=== PATIENT | female | born 1990 | race Caucasian/White ===

== ENCOUNTER → 2017-10-05 11:58 | Outpatient (CLI) | payer BC, SELFPAY ==
[2017-10-05 14:55] LABS: Hematocrit 33.5 % (37-47); Hemoglobin 10.4 g/dl (12.0-15.0); Mean Corpuscular Hgb 23.4 pg (27.0-32.0); Mean Corpuscular Volume 75.3 fL (81-99); Mean Platelet Vol. 10.9 fl (6.2-12.0); Platelet Count 204 K/mm3 (150-450); RBC Distribution Width CV 15.8 % (11.6-14.6); RBC Distribution Width SD 42.9 fl (35.1-43.9); Red Blood Count 4.45 M/mm3 (4.2-5.4)
[2017-10-05 14:57] LABS: Scan Indicated on CBC? Y/N NO
[2017-10-05 15:12] LABS: Free T3 2.5 pg/mL (2.18-3.98); T4 Free Direct 0.98 ng/dL (0.76-1.46); Thyroid Stim Hormone (TSH) 1.16 uIU/mL (0.358-3.74)
[2017-10-13 13:04] LABS: HPV Reflexed? NOT INDICATED
== END ==
PROVIDERS: Visit Provider Obstetrics & Gynecology
DX: Z12.4 Encounter for screening for malignant neoplasm of cervix (principal); N92.5 Other specified irregular menstruation
CPT/HCPCS: 36415; 84439; 84443; 84481; 85027; 88175; G0145

== ENCOUNTER → 2017-11-16 15:29 | Outpatient (CLI) | payer BC, SELFPAY ==
[2017-11-16 16:38] LABS: Progesterone Level 8.27 ng/mL (See Comment)
== END ==
PROVIDERS: Visit Provider Obstetrics & Gynecology
DX: N92.0 Excessive and frequent menstruation with regular cycle (principal)
CPT/HCPCS: 84144

== ENCOUNTER 2017-12-23 05:31 | Day surgery (SDC) | payer BC, SELFPAY ==
[2017-12-20 11:05] LABS: Hematocrit 36.8 % (37-47); Hemoglobin 11.7 g/dl (12.0-15.0); Mean Corp Hgb Conc 31.8 g/gl (32-36); Mean Corpuscular Hgb 25.7 pg (27.0-32.0); Mean Corpuscular Volume 80.7 fL (81-99); Mean Platelet Vol. 9.9 fl (6.2-12.0); Platelet Count 194 K/mm3 (150-450); RBC Distribution Width CV 17.1 % (11.6-14.6); RBC Distribution Width SD 50.3 fl (35.1-43.9); Red Blood Count 4.56 M/mm3 (4.2-5.4); White Blood Count 5.6 K/mm3 (4.4-11.0)
[2017-12-20 11:19] LABS: Scan Indicated on CBC? Y/N NO
[2017-12-20 11:23] LABS: Ferritin 17 ng/mL (8-252)
[2017-12-20 11:27] LABS: International Normalized Ratio 1.1; Prothrombin Time (Protime)PT. 13.8 SECONDS (11.7-14.9)
[2017-12-23 05:50] VITALS: BP 119/75; PULSE 77; RESP 16; TEMP 37.8; O2SAT 100; BMI 26.9
[2017-12-23 06:08] LABS: Internal QC Validated? YES +Cl - CLEAR BKGD; Pregnancy, Urine Negative Negative
--- NOTE | 2017-12-23 07:15 | EMB_PTH ---
PATIENT: CORA CORREA LOC: [facility] – [place] U#:[id number] AGE/SX: 27/F ROOM: RE12/23/[address]: Dr. Shaina Lopez MD : 1990 BED: DIS: 12/23/2017 SPEC #: [id number] RECD: 12/23/17 10:39 STATUS: NITESH REQ #: [id number] GRETTA: 12/23/17 07:[address]: Shaina Lackey DEPT: SURGICAL PATHOLOGY RECD BY: Robert Hanna ENTERED: 12/23/17 11:32 SP TYPE: ENDOM BX/C OT DR: Dr. Precious Valdez MD Tissues: A - Endometrium, NOS B - OVARIAN CYST Procedures: Surgery Specimen Level IV HEADER OPERATION: Laparoscopic ovarian cystectomy PRE-OP DIAGNOSIS: Excessive and frequent menstruation, ovarian cyst and left-sided pain TISSUE SUBMITTED: A - Endometrial curettings, B - Ovarian cyst MICROSCOPIC DIAGNOSIS A. Endometrial curettings: Secretory endometrium. B. Ovarian cyst, cystectomy: Simple serous cystadenoma. SHADI:joshua 12/24/17 MICROSCOPIC DESCRIPTION Slides are reviewed. GROSS DESCRIPTION A - Received in fixative is one container labeled with the patient's name and designated endometrial curettings. The specimen consists of multiple pieces of pink hemorrhagic soft tissue that in aggregate measure 5 x 3 x 0.3 cm. The entire specimen is submitted in two cassettes. B - Received in fixative is one container labeled with the patient's name and designated ovarian cyst. The specimen consists of a cyst weighing 5.6 gm and measuring 4 x 2.5 x 1.5 cm. Sections reveal a collapsed cyst without any papillation measuring 3.5 cm in greatest dimension. Director Of Social Work sections are submitted in three cassettes. / SHADI:joshua 12/23/17 TC:1 CPT: 03056 x2
[2017-12-23] MEDS: Methylene Blue 1% 100 MG/10 ML VIAL (09:20)
[2017-12-23] MEDS: Bupivacaine Mpf 0.5% 30 ML VIAL (09:40)
--- NOTE | 2017-12-23 09:42 | PCM.OPRPT ---
Report of Operation Date of Procedure: 12/23/17 Pre-Operative Diagnosis: Left ovarian cyst, excessive and frequent menstruation with regular cycle, endometrial polyp Post-Operative Diagnosis: Left ovarian cyst, excessive and frequent menstruation with regular cycle, endometrial polyp Surgery/Procedure Performed:: Hysteroscopy, dilation and curettage, resectoscopic polypectomy, laparoscopic left ovarian cystectomy, chromotubation Description of Surgical Findings:: 1. endometrial polyps and submucus fibroid 2. Left ovarian cyst 3. Intra-abdominal adhesions schedule hanger: Yolanda Pérez schedule hanger: Lela Saldana Type of Anesthesia:: General Anesthesiologist: David Jara Specimen's removed: 1. endometrial curettings and polyp. 2. left ovarian cyst Drains: moncada - clear urine Estimated Blood Loss (mL): 100 ml Fluids Replaced: 1100 ml Description of Procedure: Indications: Patient is a 27-year-old para 1 with a history of menorrhagia with anemia found to have suspected endometrial polyp on ultrasound with a 7 cm left adnexal cyst simple morphology. She was counseled regarding management options and opted to proceed with hysteroscopy, dilation curettage, polypectomy and laparoscopic left ovarian cystectomy. Risks, benefits, indications and alternatives of procedures were reviewed. Informed consent was obtained. Procedure: The patient was taken to the operating room and signed and was performed. She is placed in dorsal supine position and induced under general anesthesia and intubated. She is then placed into dorsal lithotomy and examination under anesthesia was performed. Her arms were tucked at her sides. The perineum and abdomen were prepped and draped in sterile fashion. She is then repositioned to high lithotomy and a speculum placed into the vagina the cervix grasped the anterior cervical lip using a single-tooth tenaculum. The uterus sounded to 3.5 inches. The cervix was subsequently dilated and hysteroscopy performed demonstrating anterior loss of mucosal fibroid and an endometrial polyp, normal tubal ostia bilaterally. Sharp curettage and attempted blind polypectomy was performed with partial retrieval of the polyp. At this time I decided to proceed with resectoscopic hysteroscopy to complete the polypectomy. Fluid management systems were changed from normal saline to 1.5% glycine. Resectoscopic hysteroscopy was performed with polypectomy and resection of the endometrial portion of a type I submucosal fibroid. A total of 330 cc of glycine was used. This portion procedure was completed and the resectoscope removed. A uterine manipulator was placed and the patient was placed into low lithotomy attention turned to the abdomen. An inferior umbilical incision was made using scalpel. Veress needle was placed with successful hanging drop test and no aspirate from the abdomen. The abdomen was insufflated to 15 mmHg. The Veress needle was removed and a 5 mm trocar was placed under laparoscopic guidance confirming entry into the abdominal cavity. There were 2 omental adhesions to the anterior abdominal wall obscuring view of the pelvis. A second 5 mm incision and port were placed proximal 2.5cm medial and superior to the left anterior superior iliac spine under transillumination. Using the laparoscopic stone the adhesions were sharply dissected from the anterior abdominal wall; monopolar energy was used for the second portion of the adhesions. There was good hemostasis and visualization of the pelvis was obtained. Patient was placed into Trendelenburg. The uterus was normal-appearing with a right ovarian cyst present likely corpus luteum as well as significant enlargement of the left ovary consistent with a prior ultrasound findings. On inspection of the anatomy it was unclear if this was a left paratubal cyst versus an ovarian cyst as the cyst appeared to be connected to both the tube and the normal ovary. At this time a third and fourth incision and 5 mm ports were placed one suprapubically and the other in the right lower quadrant following transillumination. Using the monopolar stone the left axial cyst was opened and cyst was decompressed with suctioning. Cyst fluid was clear. With decompression of the cyst it initially appeared to be an extension of the tube. Careful sharp and blunt dissection was performed to open up the mesosalpinx sharply, ambulation of the left tube was necessary to complete the procedure appropriately. With continued dissection it became evident that the cyst was separate from the 2 and extreme care was taken to avoid the tubal ostia. The Enseal device was used to coagulate and cut the mesosalpinx below the level of the tube containing the cyst. This excision was continued along the region of normal left ovary and the rest of the cyst in the Enseal. There was no clear plane of cyst origin from the ovary. There was good hemostasis along the ovary and tube. Is concerned given the tubal manipulation and the use of energy devices for the patency of the tube. At this time I proceeded with chromotubation. Patient was taken out of Trendelenburg and placed into high lithotomy. Methylene blue was introduced through a HUMI uterine manipulator and bilateral tubal patency was demonstrated with reflux of the diluted methylene blue. Attention was then turned to the abdomen. The patient was placed into low lithotomy. The abdomen was suction irrigated. The suprapubic incision was extended to approximately 2 cm and the cyst was retrieved under laparoscopic guidance. The abdomen was decompressed and trochars were removed. The suprapubic fascia was closed using 0 Vicryl. The skin at the port sites were closed using 4-0 Monocryl. Steri-Strips and OpSite were placed over the incisional wounds. A total of 10 cc of half percent Sensorcaine was administered locally. Attention was then again turned to the perineum and the vagina was irrigated to remove excess methylene blue that had spilled during the procedure. The tenaculum site was hemostatic. The patient was awakened, extubated, transferred to the recovery room without complication. Sponge counts were correct x2. She tolerated the procedure well. - Complications None - Admit VTE Documentation VTE Present on Admission: No VTE Mechan Device Prophylaxis: SCD's VTE Pharm Prophylaxis ordered?: No
[2017-12-23 10:03] VITALS: BP 112/68; BP 119/75; PULSE 56; RESP 16; TEMP 36.7; O2SAT 100
--- NOTE | 2017-12-23 10:05 | OP.PCM_ITS ---
Report of Operation Date of Procedure: 12/23/17 Pre-Operative Diagnosis: Left ovarian cyst, excessive and frequent menstruation with regular cycle, endometrial polyp Post-Operative Diagnosis: Left ovarian cyst, excessive and frequent menstruation with regular cycle, endometrial polyp Surgery/Procedure Performed:: Hysteroscopy, dilation and curettage, resectoscopic polypectomy, laparoscopic left ovarian cystectomy, chromotubation Description of Surgical Findings:: 1. endometrial polyps and submucus fibroid 2. Left ovarian cyst 3. Intra-abdominal adhesions primary mill roller: Yolanda Pérez primary mill roller: Lela Saldana Type of Anesthesia:: General Anesthesiologist: David Jara Specimen's removed: 1. endometrial curettings and polyp. 2. left ovarian cyst Drains: moncada - clear urine Estimated Blood Loss (mL): 100 ml Fluids Replaced: 1100 ml Description of Procedure: Indications: Patient is a 27-year-old para 1 with a history of menorrhagia with anemia found to have suspected endometrial polyp on ultrasound with a 7 cm left adnexal cyst simple morphology. She was counseled regarding management options and opted to proceed with hysteroscopy, dilation curettage, polypectomy and laparoscopic left ovarian cystectomy. Risks, benefits, indications and alternatives of procedures were reviewed. Informed consent was obtained. Procedure: The patient was taken to the operating room and signed and was p erformed. She is placed in dorsal supine position and induced under general anesthesia and intubated. She is then placed into dorsal lithotomy and examination under anesthesia was performed. Her arms were tucked at her sides. The perineum and abdomen were prepped and draped in sterile fashion. She is then repositioned to high lithotomy and a speculum placed into the vagina the cervix grasped the anterior cervical lip using a single-tooth tenaculum. The uterus sounded to 3.5 inches. The cervix was subsequently dilated and hysteroscopy performed demonstrating anterior loss of mucosal fibroid and an endometrial polyp, normal tubal ostia bilaterally. Sharp curettage and attempted blind polypectomy was performed with partial retrieval of the polyp. At this time I decided to proceed with resectoscopic hysteroscopy to complete the polypectomy. Fluid management systems were changed from normal saline to 1.5% glycine. Resectoscopic hysteroscopy was performed with polypectomy and resection of the endometrial portion of a type I submucosal fibroid. A total of 330 cc of glycine was used. This portion procedure was completed and the resectoscope removed. A uterine manipulator was placed and the patient was placed into low lithotomy attention turned to the abdomen. An inferior umbilical incision was made using scalpel. Veress needle was placed with successful hanging drop test and no aspirate from the abdomen. The abdomen was insufflated to 15 mmHg. The Veress needle was removed and a 5 mm trocar was placed under laparoscopic guidance confirming entry into the abdominal cavity. There were 2 omental adhesions to the anterior abdominal wall obscuring view of the pelvis. A second 5 mm incision and port were placed proximal 2.5cm medial and superior to the left anterior superior iliac spine under transillumination. Using the laparoscopic stone the adhesions were sharply dissected from the anterior abdominal wall; monopolar energy was used for the second portion of the adhesions. There was good hemostasis and visualization of the pelvis was obtained. Patient was placed into Trendelenburg. The uterus was normal- appearing with a right ovarian cyst present likely corpus luteum as well as significant enlargement of the left ovary consistent with a prior ultrasound findings. On inspection of the anatomy it was unclear if this was a left paratubal cyst versus an ovarian cyst as the cyst appeared to be connected to both the tube and the normal ovary. At this time a third and fourth incision and 5 mm ports were placed one suprapubically and the other in the right lower quadrant following transillumination. Using the monopolar stone the left axial cyst was opened and cyst was decompressed with suctioning. Cyst fluid was clear. With decompression of the cyst it initially appeared to be an extension of the tube. Careful sharp and blunt dissection was performed to open up the mesosalpinx sharply, ambulation of the left tube was necessary to complete the procedure appropriately. With continued dissection it became evident that the cyst was separate from the 2 and extreme care was taken to avoid the tubal ostia. The Enseal device was used to coagulate and cut the mesosalpinx below the level of the tube containing the cyst. This excision was continued along the region of normal left ovary and the rest of the cyst in the Enseal. There was no clear plane of cyst origin from the ovary. There was good hemostasis along the ovary and tube. Is concerned given the tubal manipulation and the use of energy devices for the patency of the tube. At this time I proceeded with chromotubation. Patient was taken out of Trendelenburg and placed into high lithotomy. Methylene blue was introduced through a HUMI uterine manipulator and bilateral tubal patency was demonstrated with reflux of the diluted methylene blue. Attention was then turned to the abdomen. The patient was placed into low lithotomy. The abdomen was suction irrigated. The suprapubic incision was extended to approximately 2 cm and the cyst was retrieved under laparoscopic guidance. The abdomen was decompressed and trochars were removed. The suprapubic fascia was closed using 0 Vicryl. The skin at the port sites were closed using 4-0 Monocryl. Steri-Strips and OpSite were placed over the incisional wounds. A total of 10 cc of half percent Sensorcaine was adm inistered locally. Attention was then again turned to the perineum and the vagina was irrigated to remove excess methylene blue that had spilled during the procedure. The tenaculum site was hemostatic. The patient was awakened, extubated, transferred to the recovery room without complication. Sponge counts were correct x2. She tolerated the procedure well. - Complications None - Admit VTE Documentation VTE Present on Admission: No VTE Mechan Device Prophylaxis: SCD's VTE Pharm Prophylaxis ordered?: No
[2017-12-23 10:18] VITALS: BP 102/63; BP 119/75; PULSE 61; RESP 16; O2SAT 100
[2017-12-23 10:30] VITALS: BP 105/58; BP 119/75; PULSE 67; RESP 16; O2SAT 98
[2017-12-23 10:41] VITALS: BP 108/59; BP 119/75; PULSE 62; RESP 16; TEMP 36.3; O2SAT 100
--- NOTE | 2017-12-23 12:15 | DCINST_ITS ---
- Discharge Diagnoses Current Active Problems: Laparoscopic left ovarian cyst removal Hysteroscopy, dilation and curettage with polyp removal from uterus Chromotubation - dye placed through the tubes to verify they are open You will use the following diet at home:: No restrictions Your food should be the consistency of: Regular Discharge Activity: Return to Normal Activity, May Shower, - - No tub bath x 1-2 weeks May resume sexual activity in: 4 weeks Lifting Restrictions: 10-20 lb Call your doctor if you observe: Fever of 101 or Higher, Inability to urinate, Inability to have a bowel movement, Using more than one pad per hour, Shortness of breath, Chest pain, Calf discomfort, Uncontrolled pain Suture Line Care: Avoid Pulling/Pushing Remove Dressing in (days):: 1 Cleanse incision/area with: Soap & Water Allergies/Adverse Reactions: Allergies No Known Allergies Allergy (Verified 12/16/17 09:25) Medications to take at Discharge Ferrous Sulfate [Iron] 325 mg PO DAILY 12/16/17 Progesterone,Micronized [Prometrium] 200 mg PO DAILY 12/16/17 Docusate Sodium [Colace] 100 mg PO BID PRN #60 capsule 12/23/17 Ibuprofen 600 mg PO TID PRN #30 tablet 12/23/17 Oxycodone [Oxyir] 5 mg PO Q6H PRN PRN 3 Days #12 tablet 12/23/17 The following prescriptions were given: Oxycodone [Oxyir] 5 mg PO Q6H PRN PRN 3 Days #12 tablet PRN Reason: Severe Pain (6-12/08) Docusate Sodium [Colace] 100 mg PO BID PRN #60 capsule PRN Reason: Constipation Ibuprofen 600 mg PO TID PRN #30 tablet PRN Reason: Pain Primary Care Physician: Precious Valdez MD [Primary Care Provider] - Test Results: Test results from this visit will be discussed in further detail at your follow- up appointment, if applicable. Please Follow Up With: Shaina Segundo MD When: 2 weeks
[2017-12-23 13:05] VITALS: BP 102/53; BP 119/75; PULSE 71; RESP 16; TEMP 36.9; O2SAT 100
== END 2017-12-23 13:17 | disposition home or self-care (01) ==
LOC: SDC 05:31 → AC 05:32
PROVIDERS: Family Provider Family Medicine; PCP Family Medicine; Referring Provider Obstetrics & Gynecology; Visit Provider Obstetrics & Gynecology
PROC: (CPT 58340; principal; 2017-12-23 07:00)
PROC: 0UJD8ZZ Inspection of Uterus and Cervix, Via Natural or Artificial Opening Endoscopic (ICD-10-PCS; CPT 58555; 2017-12-23 07:00)
DX: D27.1 Benign neoplasm of left ovary (principal); D25.0 Submucous leiomyoma of uterus; N92.0 Excessive and frequent menstruation with regular cycle; D64.9 Anemia, unspecified
CPT/HCPCS: 00840; 58340; 58350; 58558; 58662; 36415; 81025; 82728; 85027; 85610; 85730; 86850; 86900; 88305; J7120; C1760; J2405

== ENCOUNTER → 2018-02-16 10:25 | Outpatient (CLI) | payer BC, SELFPAY ==
[2018-02-16 16:14] LABS: Progesterone Level 1.34 ng/mL (See Comment)
--- OUTSIDE RECORDS SUMMARY | 2018-05-20 14:13 | XMS RPT_ITS ---
:1990 Author Organization OHIP Care Team Providers Name Role Phone Shaina Segundo Attending Unavailable Shaina Segundo Attending Unavailable Shaina Segundo Attending Unavailable Zechariah-John, Summer Attending Unavailable Sanya, Summer Referring Unavailable Precious Valdez Primary Care Unavailable PROBLEMS PROBLEMS DATE TYPE CONDITION / CODE ATTENDING STATUS SOURCE 02/16/2018 Unknown N92.0 - Excessive Apple-John, Active [place] and frequent [facility] menstruation with Hospital regular cycle / Repository N92.0(ICD-10) 02/16/2018 Unknown N83.292 - Other Apple-John, Active [place] ovarian cyst, left [facility] side / Hospital N83.292(ICD-10) Repository 12/23/2017 Unknown Z98.890 - Other Apple-John, Active Gur[place]reet specified [facility] postprocedural Hospital states / Repository Z98.890(ICD-10) 10/08/2017 Unknown N92.5 - Other Apple-John, Active [place] specified irregular [facility] menstruation / Hospital N92.5(ICD-10) Repository 10/08/2017 Unknown Z12.4 - Encounter Zechariah-John, Active [place] for screening for [facility] malignant neoplasm Hospital of cervix / Repository Z12.4(ICD-10) PROCEDURES PROCEDURES No Procedure Records FoundRESULTS RESULTS PROGESTERONE LEVEL Collected: 02/16/2018 Status: F Source: [place] 10:28 AM [facility] RE[facility] Order Comment: TODAY IS CYCLE DAY 21 TYPE CODE TESTS RESULT OUT OF REFERENCE UNITS RANGE LAB L509.4001 See Comment ng/mL Progesterone Normal 1.34 Result Comment: Progesterone Reference Table: UNITS Female: Follicular 0.15 - 1.40 ng/mL Luteal 3.34 - 25.56 ng/mL Mid-luteal 4.44 - 28.03 ng/mL Postmenopausal 0.0 - 0.73 ng/mL : 1st Trimester 11.22 - 90.00 ng/mL 2nd Trimester 25.55 - 89.40 ng/mL 3rd Trimester 48.40 -422.50 ng/mL Performed By: #### L509.4001 #### [facility] [address] [place], [address] DISCHARGE INSTRUCTION Observed: 12/23/2017 Status: F Source: [place] 12:16 PM [facility] RE[facility]IT[facility] Medical Records Department [address] [place] [address] Instructions for Home/Discharge Instructions 12/23/17 1213 MR#: [id number] Acct: [id number] Name: CORA CORREA Rep #: [id number] : 1990 27 From: Shaina Lopez MD PCP: Precious Valdez MD Status: REG [facility] - Discharge Diagnoses Current Active Problems: Laparoscopic left ovarian cyst removal Hysteroscopy, dilation and curettage with polyp removal from uterus Chromotubation - dye placed through the tubes to verify they are open You will use the following diet at home:: No restrictions Your food should be the consistency of: Regular Discharge Activity: Return to Normal Activity, May Shower, - - No tub bath x 1-2 weeks May resume sexual activity in: 4 weeks Lifting Restrictions: 10-20 lb Call your doctor if you observe: Fever of 101 or Higher, Inability to urinate, Inability to have a bowel movement, Using more than one pad per hour, Shortness of breath, Chest pain, Calf discomfort, Uncontrolled pain Suture Line Care: Avoid Pulling/Pushing Remove Dressing in (days):: 1 Cleanse incision/area with: Soap AND Water Allergies/Adverse Reactions: Allergies No Known Allergies Allergy (Verified 12/16/17 09:25) Medications to take at Discharge Ferrous Sulfate [Iron] 325 mg PO DAILY 12/16/17 Progesterone,Micronized [Prometrium] 200 mg PO DAILY 12/16/17 Docusate Sodium [Colace] 100 mg PO BID PRN #60 capsule 12/23/17 Ibuprofen 600 mg PO TID PRN #30 tablet 12/23/17 Oxycodone [Oxyir] 5 mg PO Q6H PRN PRN 3 Days #12 tablet 12/23/17 The following prescriptions were given: Oxycodone [Oxyir] 5 mg PO Q6H PRN PRN 3 Days #12 tablet PRN Reason: Severe Pain (6-12/08) Docusate Sodium [Colace] 100 mg PO BID PRN #60 capsule PRN Reason: Constipation Ibuprofen 600 mg PO TID PRN #30 tablet PRN Reason: Pain Primary Care Physician: Precious Valdez MD [Primary Care Provider] - Test Results: Test results from this visit will be discussed in further detail at your follow-up appointment, if applicable. Please Follow Up With: Shaina Segundo MD When: 2 weeks 12/23/17 1216 <Electronically signed by Shaina Segundo MD> Date Shaina Segundo MD CC: Precious Valdez MD OPERATIVE REPORT Observed: 12/23/2017 Status: F Source: [place] 10:05 AM [facility] Medical Records Department [address] [place] [address] Operative Report 12/23/17 0942 MR#: [id number] Acct: [id number] Name: CORA CORREA Rep #: [id number] : 1990 27 From: Shaina Lopez MD PCP: Precious Valdez MD Status: REG [facility] Y Location: [place] [address] Report of Operation Date of Procedure: 12/23/17 Pre-Operative Diagnosis: Left ovarian cyst, excessive and frequent menstruation with regular cycle, endometrial polyp Post-Operative Diagnosis: Left ovarian cyst, excessive and frequent menstruation with regular cycle, endometrial polyp Surgery/Procedure Performed:: Hysteroscopy, dilation and curettage, resectoscopic polypectomy, laparoscopic left ovarian cystectomy, chromotubation Description of Surgical Findings:: 1. endometrial polyps and submucus fibroid 2. Left ovarian cyst 3. Intra-abdominal adhesions disaster recovery analyst: Yolanda Pérez disaster recovery analyst: Lela Saldana Type of Anesthesia:: General Anesthesiologist: David Jara Specimen's removed: 1. endometrial curettings and polyp. 2. left ovarian cyst Drains: moncada - clear urine Estimated Blood Loss (mL): 100 ml Fluids Replaced: 1100 ml Description of Procedure: Indications: Patient is a 27-year-old para 1 with a history of menorrhagia with anemia found to have suspected endometrial polyp on ultrasound with a 7 cm left adnexal cyst simple morphology. She was counseled regarding management options and opted to proceed with hysteroscopy, dilation curettage, polypectomy and laparoscopic left ovarian cystectomy. Risks, benefits, indications and alternatives of procedures were reviewed. Informed consent was obtained. Procedure: The patient was taken to the operating room and signed and was performed. She is placed in dorsal supine position and induced under general anesthesia and intubated. She is then placed into dorsal lithotomy and examination under anesthesia was performed. Her arms were tucked at her sides. The perineum and abdomen were prepped and draped in sterile fashion. She is then repositioned to high lithotomy and a speculum placed into the vagina the cervix grasped the anterior cervical lip using a single-tooth tenaculum. The uterus sounded to 3.5 inches. The cervix was subsequently dilated and hysteroscopy performed demonstrating anterior loss of mucosal fibroid and an endometrial polyp, normal tubal ostia bilaterally. Sharp curettage and attempted blind polypectomy was performed with partial retrieval of the polyp. At this time I decided to proceed with resectoscopic hysteroscopy to complete the polypectomy. Fluid management systems were changed from normal saline to 1.5% glycine. Resectoscopic hysteroscopy was performed with polypectomy and resection of the endometrial portion of a type I submucosal fibroid. A total of 330 cc of glycine was used. This portion procedure was completed and the resectoscope removed. A uterine manipulator was placed and the patient was placed into low lithotomy attention turned to the abdomen. An inferior umbilical incision was made using scalpel. Veress needle was placed with successful hanging drop test and no aspirate from the abdomen. The abdomen was insufflated to 15 mmHg. The Veress needle was removed and a 5 mm trocar was placed under laparoscopic guidance confirming entry into the abdominal cavity. There were 2 omental adhesions to the anterior abdominal wall obscuring view of the pelvis. A second 5 mm incision and port were placed proximal 2.5cm medial and superior to the left anterior superior iliac spine under transillumination. Using the laparoscopic stone the adhesions were sharply dissected from the anterior abdominal wall; monopolar energy was used for the second portion of the adhesions. There was good hemostasis and visualization of the pelvis was obtained. Patient was placed into Trendelenburg. The uterus was normal-appearing with a right ovarian cyst present likely corpus luteum as well as significant enlargement of the left ovary consistent with a prior ultrasound findings. On inspection of the anatomy it was unclear if this was a left paratubal cyst versus an ovarian cyst as the cyst appeared to be connected to both the tube and the normal ovary. At this time a third and fourth incision and 5 mm ports were placed one suprapubically and the other in the right lower quadrant following transillumination. Using the monopolar stone the left axial cyst was opened and cyst was decompressed with suctioning. Cyst fluid was clear. With decompression of the cyst it initially appeared to be an extension of the tube. Careful sharp and blunt dissection was performed to open up the mesosalpinx sharply, ambulation of the left tube was necessary to complete the procedure appropriately. With continued dissection it became evident that the cyst was separate from the 2 and extreme care was taken to avoid the tubal ostia. The Enseal device was used to coagulate and cut the mesosalpinx below the level of the tube containing the cyst. This excision was continued along the region of normal left ovary and the rest of the cyst in the Enseal. There was no clear plane of cyst origin from the ovary. There was good hemostasis along the ovary and tube. Is concerned given the tubal manipulation and the use of energy devices for the patency of the tube. At this time I proceeded with chromotubation. Patient was taken out of Trendelenburg and placed into high lithotomy. Methylene blue was introduced through a HUMI uterine manipulator and bilateral tubal patency was demonstrated with reflux of the diluted methylene blue. Attention was then turned to the abdomen. The patient was placed into low lithotomy. The abdomen was suction irrigated. The suprapubic incision was extended to approximately 2 cm and the cyst was retrieved under laparoscopic guidance. The abdomen was decompressed and trochars were removed. The suprapubic fascia was closed using 0 Vicryl. The skin at the port sites were closed using 4-0 Monocryl. Steri-Strips and OpSite were placed over the incisional wounds. A total of 10 cc of half percent Sensorcaine was administered locally. Attention was then again turned to the perineum and the vagina was irrigated to remove excess methylene blue that had spilled during the procedure. The tenaculum site was hemostatic. The patient was awakened, extubated, transferred to the recovery room without complication. Sponge counts were correct x2. She tolerated the procedure well. - Complications None - Admit VTE Documentation VTE Present on Admission: No VTE Mechan Device Prophylaxis: SCD's VTE Pharm Prophylaxis ordered?: No 12/23/17 1005 <Electronically signed by Shaina Segundo MD> Date Shaina Segundo MD CC: Precious Valdez MD; Shaina Segundo MD Signed ENDOMETRIAL BX/CURETTINGS Observed: 12/23/2017 Status: F Source: [place] 7:15 AM [facility] Patient: CORA CORREA : 1990 () Acct Num: [id number] Phys: Sanya HUFF,Summer Unit Num: [id number] Loc: [facility] Specimen: [id number] Received: 12/23/17 - 1039 Spec Type: ENDOM BX/C TISSUES 1 TISSUES: A. Endometrium, NOS B. OVARIAN CYST GROSS DESCRIPTION A - Received in fixative is one container labeled with the patient's name and designated endometrial curettings. The specimen consists of multiple pieces of pink hemorrhagic soft tissue that in aggregate measure 5 x 3 x 0.3 cm. The entire specimen is submitted in two cassettes. B - Received in fixative is one container labeled with the patient's name and designated ovarian cyst. The specimen consists of a cyst weighing 5.6 gm and measuring 4 x 2.5 x 1.5 cm. Sections reveal a collapsed cyst without any papillation measuring 3.5 cm in greatest dimension. Photoresist Printer sections are submitted in three cassettes. / SJ:joshua 12/23/17 TC:1 CPT: 24847 x2 HEADER OPERATION: Laparoscopic ovarian cystectomy PRE-OP DIAGNOSIS: Excessive and frequent menstruation, ovarian cyst and left- sided pain TISSUE SUBMITTED: A - Endometrial curettings, B - Ovarian cyst MICROSCOPIC DESCRIPTION Slides are reviewed. MICROSCOPIC DIAGNOSIS A. Endometrial curettings: Secretory endometrium. B. Ovarian cyst, cystectomy: Simple serous cystadenoma. SJ:joshua 12/24/17 Signed Neftali Adams 12/24/17 <signature on file> Performed By: #### PEMB #### [facility] [address] [place], [place], [id number] ,URINE Collected: 12/23/2017 Status: F Source: [place] 5:43 AM [facility] TYPE CODE TESTS RESULT OUT OF REFERENCE UNITS RANGE LAB L400.8000 Negative Normal HCGUQUAL Negative Result Comment: Very dilute urine specimens, as indicated by a low specific gravity, may not contain sales representative church furniture levels of hCG. If is still suspected, a first morning urine specimen should be collected 48 hours later and tested. Performed By: #### L400.7600 #### [facility] [address] [place], [place], [id number] CBC-COMPLETE BLOOD CNT Collected: 12/20/2017 Status: F Source: [place] NO DIFF 9:48 AM [facility] TYPE CODE TESTS RESULT OUT OF RANGE REFERENCE UNITS LAB L100.1000 4.4-11.0 K/mm3 Normal WBC 5.6 LAB L100.1200 4.2-5.4 M/mm3 Normal RBC 4.56 LAB L100.1300 12.0-15.0 g/dl Low HGB 11.7 LAB L100.1400 37-47 % Low HCT 36.8 LAB L100.1500 81-99 fL Low MCV 80.7 LAB L100.1600 27.0-32.0 pg Low MCH 25.7 LAB L100.1700 32-36 g/gl Low MCHC 31.8 LAB L100.1810 11.6-14.6 % High RDW CV 17.1 LAB L100.1820 35.1-43.9 fl High RDW SD 50.3 LAB L100.1900 150-450 K/mm3 Normal PLT 194 LAB L100.2000 6.2-12.0 fl Normal MPV 9.9 Performed By: #### L100.0500 #### [facility] [address] [place], [place], [address] FERRITIN Collected: 12/20/2017 Status: F Source: [place] 9:48 AM [facility] TYPE CODE TESTS RESULT OUT OF RANGE REFERENCE UNITS LAB L503.6550 8-252 ng/mL Normal FERRITIN 17 Performed By: #### L503.6550 #### [facility] [address] [place], [address] TYPE AND SCREEN Collected: 12/20/2017 Status: F Source: [place] 9:48 AM [facility] Order Comment: Surgery Date: 12/23/17 Hx of Preganancy in last 3 Months No Ever experience any problems with transfusion(s)? N Hx of Transfusion in last 3 Months N Reason for Type AND Screen/Red Cells: SURGERY SURGICAL PROCEDURE: 96372 76507 TYPE CODE TESTS RESULT OUT OF RANGE REFERENCE UNITS LAB B10.0800 O Normal BLOOD TYPE GEL POSITIVE LAB B100.4000 Normal Antibody NEGATIVE Screen Performed By: #### B101.7475 #### [facility] [address] [place], [address] PROTHROMBIN TIME W/INR Collected: 12/20/2017 Status: F Source: [place] 9:48 AM [facility] TYPE CODE TESTS RESULT OUT OF RANGE REFERENCE UNITS LAB L300.4150 11.7-14.9 SECONDS Normal PROTIME 13.8 LAB L300.4200 Normal INR 1.1 Performed By: #### L300.3900, L300.4310 #### [facility] [address] [place], [address] PARTIAL THROMBOPLAST Collected: 12/20/2017 Status: F Source: [place] TIME 9:48 AM [facility] TYPE CODE TESTS RESULT OUT OF RANGE REFERENCE UNITS LAB L300.4310 24.1-36.2 Seconds Normal PTT 32.0 Performed By: #### L300.3900, L300.4310 #### [facility] [address] [place], [address] PROGESTERONE LEVEL Collected: 11/16/2017 Status: F Source: [place] 3:10 PM [facility] Order Comment: TODAY IS CYCLE DAY 22 TYPE CODE TESTS RESULT OUT OF REFERENCE UNITS RANGE LAB L509.4001 See Comment ng/mL Progesterone Normal 8.27 Result Comment: Progesterone Reference Table: UNITS Female: Follicular 0.15 - 1.40 ng/mL Luteal 3.34 - 25.56 ng/mL Mid-luteal 4.44 - 28.03 ng/mL Postmenopausal 0.0 - 0.73 ng/mL : 1st Trimester 11.22 - 90.00 ng/mL 2nd Trimester 25.55 - 89.40 ng/mL 3rd Trimester 48.40 -422.50 ng/mL Performed By: #### L509.4001 #### [facility] [address] [place], [address] CBC-COMPLETE BLOOD CNT Collected: 10/05/2017 Status: F Source: [place] NO DIFF 12:02 PM [facility] TYPE CODE TESTS RESULT OUT OF RANGE REFERENCE UNITS LAB L100.1000 4.4-11.0 K/mm3 Normal WBC 5.0 LAB L100.1200 4.2-5.4 M/mm3 Normal RBC 4.45 LAB L100.1300 12.0-15.0 g/dl Low HGB 10.4 LAB L100.1400 37-47 % Low HCT 33.5 LAB L100.1500 81-99 fL Low MCV 75.3 LAB L100.1600 27.0-32.0 pg Low MCH 23.4 LAB L100.1700 32-36 g/gl Low MCHC 31.0 LAB L100.1810 11.6-14.6 % High RDW CV 15.8 LAB L100.1820 35.1-43.9 fl Normal RDW SD 42.9 LAB L100.1900 150-450 K/mm3 Normal PLT 204 LAB L100.2000 6.2-12.0 fl Normal MPV 10.9 Performed By: #### L100.0500 #### [facility] [address] [place], [address] FREE T3 Collected: 10/05/2017 Status: F Source: [place] 12:02 PM [facility] TYPE CODE TESTS RESULT OUT OF RANGE REFERENCE UNITS LAB L501.77631 2.18-3.98 pg/mL Normal FREE T3 2.5 Performed By: #### L501.73195, L501.9520, L506.0400 #### [facility] [address] [place], [address] THYROID STIM HORMONE Collected: 10/05/2017 Status: F Source: [place] (TSH) 12:02 PM [facility] TYPE CODE TESTS RESULT OUT OF RANGE REFERENCE UNITS LAB L501.9520 0.358-3.74 uIU/mL Normal TSH 1.16 Performed By: #### L501.64974, L501.9520, L506.0400 #### [facility] [address] [place], [address] T4 FREE DIRECT Collected: 10/05/2017 Status: F Source: [place] 12:02 PM [facility] TYPE CODE TESTS RESULT OUT OF RANGE REFERENCE UNITS LAB L506.0400 0.76-1.46 ng/dL Normal T4 FREE 0.98 DIRECT Performed By: #### L501.08239, L501.9520, L506.0400 #### [facility] [address] [place], [address] PAP I-G W/RFX Collected: 10/05/2017 Status: F Source: [place] HRHPV-APTIMA 11:00 AM [facility] Order Comment: CYTOLOGY INFORMATION: - CLINICAL INFORMATION: - DATE LMP/MENOPAUSE: 09/22/17 LMP - COLLECTION VIAL: Thin Prep Vial - HEALTH THERAPIST SOURCE: CERVICAL/ENDOCERVICAL - COLLECTION TECHNIQUE: BRUSH/SPATULA Specimen Comment: [id number] Specimen Comment: No. of containers..01 ThinPrep Vial TYPE CODE TESTS RESULT OUT OF RANGE REFERENCE UNITS LAB L7400.0800 . Normal DIAGN Comment Result Comment: NEGATIVE FOR INTRAEPITHELIAL LESION AND MALIGNANCY. LAB L7400.0900 . Normal ADEQ Comment Result Comment: Satisfactory for evaluation. LAB L7400.1400 . Normal PERFORM Comment Result Comment: Mira Treadwell, Patient Services Clerk (ASCP) LAB L7400.2575 . Normal TEST METHOD Comment Result Comment: This liquid based ThinPrep(R) pap test was screened with the use of an image guided system. LAB L7400.2600 . Normal . COMM LAB L7400.2700 . Normal PAPSMR Comment Result Comment: The Pap smear is a screening test designed to aid in the detection of premalignant and malignant conditions of the uterine cervix. It is not a diagnostic procedure and should not be used as the sole means of detecting cervical cancer. Both false-positive and false-negative reports do occur. LAB L7400.2800 . Normal HPV RFLX Comment Result Comment: The HPV DNA reflex criteria were not met with this specimen result therefore, no HPV testing was performed. Performed at: - [facility] [id number] Fashion Coordinator: Tawanna Newsome MD, Phone: [phone] Performed By: #### L7400.0353 #### [facility] (refer to report for specific site) refer to report for address and phone number ALLERGIES ALLERGIES DATE TYPE / CODE NAME / CODE REACTION SEVERITY SOURCE 12/16/2017 Drug No Known Unknown [facility] Allergy/4160 Allergies/F00 Hospital [address](SNOMED [id number](RXNOR Repository CT) M) ENCOUNTERS ENCOUNTERS ADMIT/DISCHARGE ACCOUNT ADMITTING ENCOUNTER LOCATION SOURCE NUMBER CLASS 02/16/2018 [id number] Ambulatory [place] 7 [facility] ing:WOBLAB Repository 12/23/2017/ [id number] [facility] ing:SDCRoom: Repository AC01 11/16/2017 [id number] [facility] ing:LABSPEC Repository 10/05/2017 [id number] [facility] 7 [facility] ing:WOBLAB Repository PAYERS PAYERS ENCOUNTER GUARANTOR PAYER SUBSCRIBER SOURCE 02/16/2018 [facility] NIKA S [place] [id number] Insurance:ANTHEMPolic SCHCKERDOB: [facility] y Number: [id number] [id number] Repository [address]Zva: [phone]) voh Date:4327-05-89UO [phone] () [id number] [place] [address]QO: 02/16/2018 Secondary NOT GIVENUNK [place] Insurance:SELF PAY [facility] Number: Effective Repository Date:2018-02-16 12/23/2017 [facility] Primary NIKA S [place] [id number] [facility] y Number: [id number], [place] [id number] Repository [address]Sdr: [phone]) jorge alberto Date:[id number] [phone] () [address], [place] [address]XJ: 12/23/2017 Secondary NOT GIVENUNK [place] Insurance:SELF PAY [facility] Number: Effective Repository Date:2017-12-07 11/16/[address] [facility] S [place] [id number] Insurance:ANTHEMPolic SCHMUCKERDOB: [facility] y Number: [id number], [place] [id number] Repository [address]Bvi: [phone]) jorge alberto Date:0804-00-47MA [phone] () [address]JS, [place] [address]OD: 11/16/2017 Secondary NOT GIVENUNK [place] Insurance:SELF PAY [facility] Number: Effective Repository Date:2017-11-16 10/05/[address] [facility] S [place] [id number] Insurance:ANTHEMPolic SCHMUCKERDOB: [facility] y Number: [id number], [place] [id number] Repository [address]Ghh: [phone]) jorge alberto Date:9070-45-55SI [phone] () [address]ZTX[place], [place] [address]XS: 10/05/2017 Secondary NOT GIVENUNK Gurpreet Insurance:SELF PAY [facility] Number: Effective Repository Date:2017-10-05
== END ==
PROVIDERS: Visit Provider Obstetrics & Gynecology
DX: N92.0 Excessive and frequent menstruation with regular cycle (principal); N83.292 Other ovarian cyst, left side
CPT/HCPCS: 36415; 84144

== ENCOUNTER → 2018-05-05 08:41 | Outpatient (CLI) | payer BC, SELFPAY ==
[2018-05-05 11:22] LABS: Insulin 12.2 mU/L (2.6-37.6); Vitamin D,25 Hydroxy 20.2 ng/mL (29.95-100.01)
[2018-05-05 11:28] LABS: Estradiol 38.4 pg/mL; Follicle Stimulating Hormone 5.3 mIU/mL; Free T3 3.1 pg/mL (2.18-3.98); Glucose 91 mg/dL (74-106); Prolactin 6.5 ng/mL; T4 Free Direct 1.01 ng/dL (0.76-1.46); Thyroid Stim Hormone (TSH) 1.73 uIU/mL (0.358-3.74)
[2018-05-06 12:40] LABS: DHEA Sulfate 578.2 ug/dL (84.8-378.0)
[2018-05-09 10:59] LABS: 17-Hydroxyprogesterone 29 ng/dL (.)
== END ==
PROVIDERS: Visit Provider Obstetrics & Gynecology
DX: N92.0 Excessive and frequent menstruation with regular cycle (principal)
CPT/HCPCS: 36415; 82306; 82533; 82627; 82670; 82947; 83001; 83498; 83525; 84146; 84403; 84439; 84443; 84481; 82626

== ENCOUNTER → 2018-06-20 09:36 | Outpatient (CLI) | payer BC, SELFPAY ==
[2018-06-20 11:11] LABS: Progesterone Level 11.18 ng/mL (See Comment)
== END ==
PROVIDERS: Visit Provider Obstetrics & Gynecology
DX: N97.0 Female infertility associated with anovulation (principal)
CPT/HCPCS: 36415; 84144

== ENCOUNTER → 2018-08-08 08:42 | Outpatient (CLI) | payer BC, SELFPAY ==
[2018-08-08 10:52] LABS: hCG Titer Quant., Serum 11 mIU/mL (1-3)
== END ==
PROVIDERS: Visit Provider Obstetrics & Gynecology
DX: N91.2 Amenorrhea, unspecified (principal)
CPT/HCPCS: 36415; 84702; A4216

== ENCOUNTER → 2018-08-10 09:07 | Outpatient (CLI) | payer BC, SELFPAY ==
[2018-08-10 11:12] LABS: hCG Titer Quant., Serum 3 mIU/mL (1-3)
== END ==
PROVIDERS: Visit Provider Obstetrics & Gynecology
DX: N91.2 Amenorrhea, unspecified (principal)
CPT/HCPCS: 36415; 84702

== ENCOUNTER → 2018-09-22 09:26 | Outpatient (CLI) | payer BC, SELFPAY ==
[2018-09-22 10:51] LABS: Progesterone Level 24.03 ng/mL (See Comment); Vitamin D,25 Hydroxy 76.3 ng/mL (29.95-100.01)
== END ==
PROVIDERS: Visit Provider Obstetrics & Gynecology
DX: N97.0 Female infertility associated with anovulation (principal); E55.9 Vitamin D deficiency, unspecified
CPT/HCPCS: 36415; 82306; 84144

== ENCOUNTER → 2019-01-04 16:52 | Outpatient (CLI) | payer BC, SELFPAY ==
[2019-01-04 16:46] VITALS: BMI 26.9
[2019-01-04 17:17] LABS: Absolute Lymphocyte Count 2.32 X10^3/uL (0.83-4.51); Absolute Neutrophil Count 5.8 X10^3/uL (2.0-7.7); Basophil# 0.04 X10^3/uL; Basophil% 0.4 % (0-1); Eosinophil# 0.15 X10^3/uL; Eosinophils% 1.7 % (0-5); Hematocrit 36.1 % (37-47); Lymphocyte # 2.32 X10^3/ul (4.0); Lymphocyte % 25.9 % (19-41); Mean Corp Hgb Conc 33.2 g/dL (32-36); Mean Corpuscular Hgb 27.8 pg (27.0-32.0); Mean Corpuscular Volume 83.8 fL (81-99); Mean Platelet Vol. 9.8 fl (6.2-12.0); Monocyte# 0.64 X10^3/uL; Monocyte% 7.1 % (0-10); NRBC Flagged by Analyzer 0 % (0-5); Neutrophil # 5.77 X10^3/uL (2.7-7.7); Neutrophil % 64.5 % (47-70); Platelet Count 209 K/mm3 (150-450); RBC Distribution Width CV 13.5 % (11.6-14.6); RBC Distribution Width SD 41.9 fl (35.1-43.9); Red Blood Count 4.31 M/mm3 (4.2-5.4)
[2019-01-04 21:17] LABS: Chlamydia Trachomatis by PCR Negative (Negative); Neisserai gonorrhoeae by PCR Negative (Negative); Probe Check PASS; Sample Adequacy Control PASS; Specimen Processing Control PASS
[2019-01-05 02:21] LABS: Rapid Plasmin Reagin (RPR) NONREACTIVE (NONREACTIVE)
[2019-01-05 11:06] LABS: HIV - WCH Non-Reactive (Nonreactive); Hepatitis B Surface Antigen Non-Reactive (Nonreactive); Rubella IgG 70.4 IU/mL
== END ==
PROVIDERS: Family Provider Family Medicine; PCP Family Medicine; Referring Provider Obstetrics & Gynecology; Visit Provider Obstetrics & Gynecology
DX: Z34.80 Encounter for supervision of other normal pregnancy, unspecified trimester (principal)
CPT/HCPCS: 36415; 85025; 86592; 86703; 86762; 86850; 86900; 86901; 87340; 87491; 87591

== ENCOUNTER → 2019-05-26 15:05 | Outpatient (CLI) | payer BC, SELFPAY ==
[2019-05-26 14:14] VITALS: BMI 26.9
[2019-05-26 15:38] LABS: Absolute Lymphocyte Count 1.66 X10^3/uL (0.83-4.51); Absolute Neutrophil Count 6.9 X10^3/uL (2.0-7.7); Basophil# 0.02 X10^3/uL; Basophil% 0.2 % (0-1); Eosinophil# 0.14 X10^3/uL; Eosinophils% 1.5 % (0-5); Hematocrit 31.4 % (37-47); Hemoglobin 10.4 g/dL (12.0-15.0); Lymphocyte # 1.66 X10^3/ul (4.0); Lymphocyte % 17.8 % (19-41); Mean Corp Hgb Conc 33.1 g/dL (32-36); Mean Corpuscular Hgb 29.1 pg (27.0-32.0); Mean Platelet Vol. 9.9 fl (6.2-12.0); Monocyte# 0.58 X10^3/uL; Monocyte% 6.2 % (0-10); NRBC Flagged by Analyzer 0 % (0-5); Neutrophil # 6.85 X10^3/uL (2.7-7.7); Neutrophil % 73.2 % (47-70); Platelet Count 147 K/mm3 (150-450); RBC Distribution Width CV 12.9 % (11.6-14.6); RBC Distribution Width SD 41.2 fl (35.1-43.9); Red Blood Count 3.57 M/mm3 (4.2-5.4); White Blood Count 9.4 K/mm3 (4.4-11.0)
[2019-05-26 16:04] LABS: Glucose Challenge Gest 1H 50g 109 mg/dL (70-140)
== END ==
PROVIDERS: PCP Family Medicine; Referring Provider Obstetrics & Gynecology; Visit Provider Obstetrics & Gynecology
DX: Z34.80 Encounter for supervision of other normal pregnancy, unspecified trimester (principal)
CPT/HCPCS: 36415; 82950; 85025

== ENCOUNTER → 2019-07-21 18:24 | Outpatient (CLI) | payer BC, SELFPAY ==
[2019-07-21 14:23] VITALS: BMI 26.9
== END ==
PROVIDERS: Referring Provider Obstetrics & Gynecology; Visit Provider Obstetrics & Gynecology
DX: Z34.90 Encounter for supervision of normal pregnancy, unspecified, unspecified trimester (principal)
CPT/HCPCS: 87081

== ENCOUNTER → 2019-08-04 14:20 | Outpatient (CLI) | payer BC, SELFPAY ==
[2019-08-04 14:00] VITALS: BMI 26.9
[2019-08-04 15:46] LABS: Absolute Lymphocyte Count 1.73 X10^3/uL (0.83-4.51); Absolute Neutrophil Count 6.2 X10^3/uL (2.0-7.7); Basophil# 0.03 X10^3/uL; Basophil% 0.3 % (0-1); Eosinophil# 0.13 X10^3/uL; Eosinophils% 1.5 % (0-5); Hematocrit 33.4 % (37-47); Hemoglobin 10.6 g/dL (12.0-15.0); Lymphocyte # 1.73 X10^3/ul (4.0); Lymphocyte % 19.4 % (19-41); Mean Corp Hgb Conc 31.7 g/dL (32-36); Mean Corpuscular Hgb 27.2 pg (27.0-32.0); Mean Corpuscular Volume 85.6 fL (81-99); Mean Platelet Vol. 11.1 fl (6.2-12.0); Monocyte# 0.62 X10^3/uL; NRBC Flagged by Analyzer 0 % (0-5); Neutrophil % 69.7 % (47-70); Platelet Count 170 K/mm3 (150-450); RBC Distribution Width CV 14.3 % (11.6-14.6); RBC Distribution Width SD 43.8 fl (35.1-43.9); White Blood Count 8.9 K/mm3 (4.4-11.0)
== END ==
PROVIDERS: PCP Family Medicine; Referring Provider Nurse Practitioner Women's Health; Visit Provider Nurse Practitioner Women's Health
DX: O99.019 Anemia complicating pregnancy, unspecified trimester (principal); D64.9 Anemia, unspecified; Z3A.00 Weeks of gestation of pregnancy not specified
CPT/HCPCS: 36415; 85025

== ENCOUNTER → 2019-08-07 | Outpatient (CLI) | payer BC, SELFPAY ==
[2019-08-04 14:00] VITALS: BMI 26.9
== END | disposition home or self-care (01) ==
LOC: LABSPEC 12:12
PROVIDERS: PCP Family Medicine; Referring Provider Obstetrics & Gynecology; Visit Provider Obstetrics & Gynecology
DX: Z11.59 Encounter for screening for other viral diseases (principal)
CPT/HCPCS: 87635; G2023; U0003

== ENCOUNTER 2019-08-10 05:35 | Inpatient (IN) | payer BC, SELFPAY ==
[2019-05-26 14:14] VITALS: BMI 26.9
[2019-08-04 14:00] VITALS: BMI 26.9
[2019-08-10] VITALS (22 sets, daily range): BP systolic 99–121; BP diastolic 50–79; PULSE 76–98; RESP 16–17; TEMP 36.1–36.8; O2SAT 99–100; BMI 33.1
--- NOTE | 2019-08-10 01:04 | PCM.HPOB.BLA ---
- Problem List (1) Anemia affecting Status: Acute Qualifiers: Comment: Start iron, check cbc at 36 weeks (2) delivery delivered Status: Acute Comment: x1 due to FHR decel, schedule repeat at 39 weeks- scheduled for 08/10/19 at 0730. (3) Status: Acute Qualifiers: Comment: Declines genetic, carrier and NTD. 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 Is patient in pain?: No Allergies No Known Allergies Allergy (Verified 07/26/19 13:54) Medications multivitamin no.47-iron fum 27 mg-folate no.1 1 mg-dha 300 mg capsule cap PO cap 01/04/19 [History Confirmed 07/26/19] Last Menstral Period: 11/03/18 Zika: Zika virus screening: Negative : No PFSH PFSH Medical History PCOS (polycystic ovarian syndrome) (Acute) Surgical History delivery delivered (Acute) H/O ovarian cystectomy (Acute) History of wisdom tooth extraction, class II edentulism (Acute) Hx of appendectomy (Acute) Status post hysteroscopic polypectomy (Acute) Family History Grandmother Breast cancer Social History (Updated 07/26/19 @ 14:[address] Helga Linda MD) adopted: No household members: family housing: house number of children: 1 current occupational status: employed current occupation: [employer] pets and animals: Yes history of recent travel: No sexually active: Yes Smoking Status: Never smoker second hand exposure: No alcohol intake: current alcohol intake frequency: holidays/special occasions only substance use type: does not use seatbelt use: always do you feel safe at home: Yes additional social history: Rj LARKIN Pregancy History 3 Elective abortions Hx Para 1 Spontaneous abortions Hx # Term Pregnancies Ectopic pregnancies Hx # Pregnancies Multiple births # of living children Past Pregnancies Del. Date Name GA/Weeks Outcome Route Bth Weight Infant Gen Labor Lgth Anesthesia Del Locatn Provider FOB 01/16/16 Pattie 41 live - full term 7lbs 8oz Female epidural [facility] Delivery Date: 01/16/16 On 01/04/19 @ 15:55 Eveline Guy cord wrapped decels HPI 37 WK OB: Details: CORA CORREA is a 29 year old G3, P1 at 39 weeks presents for repeat low transverse . Patient declines trial of labor and has had an uncomplicated . OB Visit ANTHONY Calculator Estimated Delivery Date Method Current WG Current Estimate 08/17/19 Ultrasound #1 36w 6d Other Estimates 08/10/19 LMP (Certain) 37w 6d Expected Delivery Route/Plan LTCS Labor Preferences- labor support person: [] pain management options preferred: [] cut cord/dad catch: [] : [] PP control planned: [] discussed possible routes of delivery and associated risks: [] special requests: [] Specific Issue/Plans flu vaccine: declined tdap vaccine: given rhogam: na LARC form signed: movement and labor precautions reviewed. Problem list reviewed and updated with the most current plan of care details and appropriate orders placed. Relevant counseling for the gestational age provided. Continue routine care and follow up unless otherwise noted in visit notes/problem list details Initial Weight: 162 lb Date EGA Weight BP Urine Prot Glucose FHR FuHt Pres Dilation Effaced St Visit Note 02/02/19 12w 0d 163 lb (+16 oz) 136/72 Negative Negative 160 02/28/19 15w 5d 161 lb (-16 oz) 127/75 Negative Negative 150 SM- no vb cramping 03/30/19 20w 0d 167 lb (+5 lb) 132/70 Negative Negative 145 SM- no vb cramping 04/28/19 24w 1d 175 lb (+13 lb) 130/84 Negative Negative 140 24 SM- no vb lof good fm no regular ctx 05/26/19 28w 1d 182 lb (+20 lb) 122/62 Negative Negative 140 28 SM- no vb lof fm no regular ctx cbc gct tdap 06/23/19 32w 1d 187 lb (+25 lb) 122/70 Negative Negative 140 34 SM- n ovb lof good f mno regular ctx 07/21/19 36w 1d 191 lb (+29 lb) 134/82 Negative Negative 140 36 Cephalic SM- no vb lof good fm no regular ctx 07/26/19 36w 6d 193 lb 4 oz (+31 lb 4 oz) 136/82 140 37 Cephalic 0 SM- no vb lof good fm no regular ctx ACOG First Trimester First Trimester: Second Trimester Second Trimester: Signs and Symptoms of Labor, Selecting a care provider, Reproductive Life Planning, Care Planning, Tobacco Cessation, Depression/Anxiety and Intimate Partner Violence Third Trimester Third Trimester: Pain Management Plans, Labor support person(s), Immediate Larc, Movement Monitoring and Feeding Yes ; discussed Trial of Labor after Counseling or discussed Circumcision preference Diagnostics Diagnostics Diagnostics Blood Type O POSITIVE 01/04/19 Antibody Screen NEGATIVE 01/04/19 Glucose 1 Hr 50 gm 109 mg/dL (70-140) 05/26/19 HIV 1&2 Antibody Non-Reactive (Nonreactive) 01/04/19 Rubella IgG Antibody 70.4 IU/mL 01/04/19 Hgb 10.4 g/dL (12.0-15.0) L 05/26/19 Hct 31.4 % (37-47) L 05/26/19 RPR NONREACTIVE (NONREACTIVE) 01/04/19 Details: HIV: Urine Culture: Sequential Screen: NIPT Screen: ROS Const Reports system reviewed and no additional complaints, except as docu Card Reports system reviewed and no additional complaints, except as docu Resp Reports system reviewed and no additional complaints, except as docu GI Reports system reviewed and no additional complaints, except as docu, Reports nausea Reports system reviewed and no additional complaints, except as docu Musc Reports system reviewed and no additional complaints, except as docu Exam Const General: cooperative, healthy appearing, comfortable, anxious HENPA Head: normal to inspection Nose: external nose normal Face and sinus: normal facial exam Neck Neck: normal visual inspection, full ROM, no lymphadenopathy Thyroid: thyroid normal Chest Chest palpation & inspection: normal inspection of the chest Resp Effort & Inspection: normal respiratory effort GI Inspection: normal to inspection Palpation: soft, other (gravid uterus) Other: vertex and appropriate size for gestational age Other: Cervical Exam: Extrem General: pedal edema Assessment & Plan Problems 1. Anemia affecting O99.019 Start iron, check cbc at 36 weeks 2. 36 weeks gestation of Z3A.36 Declines genetic, carrier and NTD. nl anatomy 3. Supervision of other normal Z34.80 PRR ANTHONY 08/17/2019 boy ramone [place] Spouse Tristin 4. delivery delivered O82 x1 due to FHR decel, schedule repeat at 39 weeks- scheduled for 08/10/19 at 0730. 29-year-old G3, P1 at 39 weeks presents for repeat low transverse Declines trial of labor after plan repeat low transverse Orders Orders: POC Urinalysis 2 Dip (Clinic) Today Coding Level of Care Code OB Routine Diagnoses Anemia affecting O99.019 36 weeks gestation of Z3A.36 ??Weeks of gestation: 36 weeks Supervision of other normal Z34.80 delivery delivered O82
[2019-08-10] MEDS: Lactated Ringers 1,000 ML 999 ML IV (06:00)
[2019-08-10] MEDS: Acetaminophen 500 MG Tablet 1000 MG PO ×3 (06:05→18:05)
[2019-08-10 06:07] LABS: Absolute Neutrophil Count 5.2 X10^3/uL (2.0-7.7); Basophil# 0.03 X10^3/uL; Basophil% 0.4 % (0-1); Eosinophil# 0.16 X10^3/uL; Hematocrit 32.5 % (37-47); Hemoglobin 10.4 g/dL (12.0-15.0); Lymphocyte % 25.9 % (19-41); Mean Corpuscular Hgb 27.4 pg (27.0-32.0); Mean Corpuscular Volume 85.5 fL (81-99); Mean Platelet Vol. 10.9 fl (6.2-12.0); Monocyte# 0.46 X10^3/uL; Monocyte% 5.7 % (0-10); NRBC Flagged by Analyzer 0 % (0-5); Neutrophil # 5.22 X10^3/uL (2.7-7.7); Neutrophil % 64.4 % (47-70); Platelet Count 156 K/mm3 (150-450); RBC Distribution Width CV 14.1 % (11.6-14.6); RBC Distribution Width SD 43.7 fl (35.1-43.9); White Blood Count 8.1 K/mm3 (4.4-11.0)
[2019-08-10] MEDS: Lactated Ringers 1,000 ML 150 ML IV (07:00)
[2019-08-10] MEDS: Sodium Citrate/Citric Acid 30 ML UDC PO (07:00)
[2019-08-10] MEDS: Cefazolin 2 GM in 0.9% Normal Saline 100 ML IV (07:15)
[2019-08-10] MEDS: Oxytocin 30 units/NS 500 ml 30 UNITS/500 ML IV.SOLN 167 UNITS IV (10:47)
[2019-08-10] MEDS: Ketorolac 30 MG/ML Syringe IV ×2 (12:31→18:05)
[2019-08-10] MEDS: Lactated Ringers 1,000 ML 100 ML IV (13:27)
[2019-08-11] MEDS: Acetaminophen 500 MG Tablet 1000 MG PO ×3 (00:15→12:37)
[2019-08-11] MEDS: Ketorolac 30 MG/ML Syringe IV ×2 (00:16→06:15)
[2019-08-11] MEDS: 0.9% Saline Lock 10 ML Syringe IV (00:16)
[2019-08-11 00:20] VITALS: BP 107/51; PULSE 94; RESP 17; TEMP 36.8
[2019-08-11 04:10] VITALS: BP 96/47; PULSE 82; RESP 18; TEMP 36.6; O2SAT 100
[2019-08-11 06:15] LABS: Hematocrit 24.1 % (37-47); Hemoglobin 7.6 g/dL (12.0-15.0); Mean Corp Hgb Conc 31.5 g/dL (32-36); Mean Corpuscular Hgb 27.5 pg (27.0-32.0); Mean Corpuscular Volume 87.3 fL (81-99); Mean Platelet Vol. 10.8 fl (6.2-12.0); Platelet Count 132 K/mm3 (150-450); RBC Distribution Width CV 14.3 % (11.6-14.6); Red Blood Count 2.76 M/mm3 (4.2-5.4); White Blood Count 10.9 K/mm3 (4.4-11.0)
[2019-08-11 08:00] VITALS: BP 111/47; PULSE 94; RESP 18; TEMP 36.7; O2SAT 98
[2019-08-11] MEDS: Senna/Docusate Sodium 1 Tablet PO (10:56)
--- NOTE | 2019-08-11 13:07 | PCM.OPRPT ---
Problem List (1) Anemia affecting Status: Acute Qualifiers: Comment: Start iron, check cbc at 36 weeks (2) delivery delivered Status: Acute Comment: x1 due to FHR decel, schedule repeat at 39 weeks- scheduled for 08/10/19 at 0730. (3) Status: Acute Qualifiers: Comment: Declines genetic, carrier and NTD. 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 Smith catheter was placed. The patient was placed in the dorsal supine position with leftward tilt. Patient was prepped and draped in the normal sterile fashion. Pfannenstiel skin incision was made with the scalpel and carried through to the underlying layer of fascia with the scalpel. Fascia was nicked in the midline and the incision extended laterally. The rectus bellies were dissected off superiorly and inferiorly with out complication both sharply and bluntly. The peritoneum was entered digitally. The incision was stretched and a low transverse uterine incision was made with the scalpel. The 's head was delivered atraumatically followed by the anterior and posterior shoulders without complication the rest of the infant delivered. The cord was clamped and cut and the was handed off to awaiting nurse. The placenta was delivered spontaneously immediately following and was noted to be intact and have a three-vessel cord. The uterus was exteriorized cleared of all clots and debris, and the incision was closed in a double layer closure using #1 Monocryl. The ovaries and fallopian tubes were noted to be within normal limits. The uterus was returned to the maternal abdomen and gutters were cleared of all clots and debris. The peritoneum was closed with 3-0 Monocryl in a running fashion. Gloves were changed prior to fascial closure. Fascia was closed with 0 PDS in a running fashion. prevoius scar excised and subcutaneous tissue reapproximated after it was copiously irrigated and the skin was closed with 3-0 Monocryl in a subcuticular fashion. Mepilex dressing was applied without complication. Patient was taken to recovery in stable condition. It was discussed with the patient that based on the clinical information obtained during this encounter, combined with her history, at this time I would recommend cesareans for future deliveries if further pregnancies are desired. Amniotic Fluid Description: Clear Esitmated Blood Loss (ml): 900 Infant Gender: Male Delayed cord clamping: Yes Antibiotic Given: Ancef 2 grams IV x1 Pt instructed on risks of surgery: Bleeding, Anesthesia Risks, Infection, Injury to surrounding structure(s) including bowel and bladder Complications: None - Admit VTE Documentation VTE Present on Admission: No VTE Mechan Device Prophylaxis: SCD's Multi Select Codes - Urinary/Genital Urinary/Genital CPT Codes: 51465 Delivery [facility]
--- NOTE | 2019-08-11 13:09 | PCM.PN.OB ---
Subjective: doing well no complaints pain controlled no CP SOB N V ambulating well tolerating po lochia moderate, going well - Physical Exam Vitals/I&O's: Vital Signs Temp Pulse Resp BP Pulse Ox 98.1 F 94 18 111/47 L 98 08/11/19 08:00 08/11/19 08:00 08/11/19 08:00 08/11/19 08:00 08/11/19 08:00 Oxygen Delivery Method Room Air Weight: 193 lb Body Mass Index (BMI) 33.1 Intake and Output for Last 24 Hours 08/09/19 08/10/19 08/11/19 23:59 23:59 23:59 Intake Total 6798.83 / 6798.83 Output Total 1350 / 1350 600 / 600 Balance 5448.83 / 5448.83 -600 / -600 General: Alert, Oriented x3 Laboratory Results 08/11/19 06:00: WBC 10.9, RBC 2.76 L, Hgb 7.6 L, Hct 24.1 L, MCV 87.3, MCH 27.5, MCHC 31.5 L, RDW Std Deviation 45.0 H, RDW Coeff of Naresh 14.3, Plt Count 132 L, MPV 10.8 Current Medications Acetaminophen (Tylenol) 1,000 mg PO Q6 [facility] Last Admin: 08/11/19 12:37 Dose: 1,000 mg Documented by: Bisacodyl (Dulcolax) 10 mg RECTAL UD PRN PRN Reason: If no BM Hydrocortisone (Hytone) 1 applic TOPICAL TID PRN PRN; Protocol PRN Reason: Discomfort Naloxone HCl 4 mg/ Dextrose 504 mls @ 0 mls/hr IV .Q0M PRN; Protocol PRN Reason: Respiratory depression Naloxone HCl 4 mg/ Dextrose 504 mls @ 0 mls/hr IV .Q0M PRN; Protocol PRN Reason: To maintain Resp. rate >10 Methylergonovine Maleate (Methergine) 0.2 mg IM X1 PRN PRN Reason: Uterine Atony Naloxone HCl (Narcan) 0.02 mg IV Q1M PRN PRN Reason: RR <10 and pt unresponsive Naproxen (Naprosyn) 500 mg PO Q8 [facility] Last Admin: 08/11/19 07:02 Dose: Not Given Documented by: Ondansetron HCl (Zofran) 4 mg IV Q4H PRN PRN PRN Reason: Nausea Oxycodone HCl (Oxyir) 5 - 10 mg PO Q4H PRN PRN PRN Reason: Pain Score 4-10/10 Prochlorperazine Edisylate (Compazine Iv) 10 mg IV Q6H PRN PRN PRN Reason: NAUSEA Senna/Docusate Sodium (Senokot-S, Lynnette-Colace) 0 tablet PO DAILY [facility] Last Admin: 08/11/19 10:56 Dose: 2 tablet Documented by: Simethicone (Mylicon) 80 mg PO PCHS PRN PRN Reason: Indigestion/stomach pain Sodium Chloride () 5 - 15 ml IV UD PRN PRN Reason: SALINE FLUSH Last Admin: 08/11/19 00:16 Dose: 10 ml Documented by: Medical Necessity - Tobacco Use Smoking Status: Never smoker Assessment/Plan All Active Problems (Last Reviewed 08/04/19 @ 13:53 by Lucy Gallegos) Anemia affecting (Acute) (Acute) Supervision of other normal (Acute) delivery delivered (Acute) Endometrial polyp (Resolved) Infertility (Resolved) Menorrhagia (Resolved) Ovarian cyst, left (Resolved) s/p LTCS PPD # 1 1. routine post care 2. breast feeding- support given 3. rh positive 4. rubella immune
--- NOTE | 2019-08-11 13:11 | DCINST_ITS ---
Discharge Diet: No Restrictions Discharge Activity: May Not Drive - for 2 weeks, May not drive while taking narcotic pain medications., May Shower, May Take a Tub Bath - in 7 days May resume sexual activity in: 4-6 weeks Lifting Restrictions: 20 pounds Additional Activity Instructions:: Nothing in the vagina for 4-6 weeks. You may return to work/school in 6 weeks. Call your doctor if your incision/area has: Continuous Slow Oozing, Sudden Increased Bleeding, Increased Pain/ Swelling, Increased Redness, Foul Smelling Discharge Call your doctor if you observe: Fever of 101 or Higher, Using more than one pad per hour - for 2 hours Suture Line Care: Avoid Pulling/Pushing, Avoid Pinching/Bending Cleanse incision/area with: Keep Dressing Clean & Dry Additional Instructions: If you experience any of the following, contact your healthcare provider. * Bleeding that soaks a pad every hour for 2 hours * Fever 100.4 or higher * Unrelieved incision or abdominal pain * Swelling, redness, discharge or bleeding from your incision or episiotomy site * Your incision begins to separate * Problems urinating (including inability to urinate or burning while urinating). * Visual changes * Severe headache * Flu-like symptoms * Pain or redness in one of both of your breasts * Pain, warmth, tenderness or swelling in your legs, especially the calf area * Frequent nausea and vomiting * Symptoms of depression or anxiety If you experience any of the following, call 911 or go to the nearest Emergency Room. * Chest pain * Problems breathing * Seizure activity * Partial or complete paralysis of a body part, slurred speech, weakness or drooping of the face, or a sudden inability to walk or hold your balance Allergies/Adverse Reactions: Allergies No Known Allergies Allergy (Verified 08/10/19 05:48) Medications to take at Discharge Iron 325 mg PO DAILY 08/10/19 Tablet 1 tab PO DAILY 08/10/19 Naproxen [Naprosyn] 250 - 500 mg PO Q8H PRN PRN #30 tab 08/11/19 Oxycodone HCl/Acetaminophen [Percocet 5-325] 1 - 2 tab PO Q6H PRN PRN 7 Days #15 tab 08/11/19 The following prescriptions were given: Naproxen [Naprosyn] 250 - 500 mg PO Q8H PRN PRN #30 tab PRN Reason: MILD PAIN Transmission Status: Sent to [facility] Oxycodone HCl/Acetaminophen [Percocet 5-325] 1 - 2 tab PO Q6H PRN PRN 7 Days #15 tab PRN Reason: Pain Transmission Status: Sent to [facility] Follow-Up: Call to make an appointment with your doctor for an incision check in 1-2 weeks. You will also need a 6 week post- follow up appointment. Test results from this visit will be discussed in further detail at your follow- up appointment, if applicable. Please Follow Up With: Helga Linda MD - Call to make an appointment for an incision check in 1-2 [phone] When: You will need a post- check in 6 weeks. Primary Care Physician: Precious Valdez MD [Primary Care Provider] -
[2019-08-11 14:20] VITALS: BP 124/68; PULSE 98; RESP 16; TEMP 37.3
[2019-08-11] MEDS: Naproxen 250 MG Tablet 500 MG PO (14:28)
== END 2019-08-11 17:20 | disposition home or self-care (01) | DRG 788 ==
PROVIDERS: Admitting Provider Obstetrics & Gynecology; PCP Family Medicine; Referring Provider Obstetrics & Gynecology; Visit Provider Obstetrics & Gynecology
PROC: (CPT 59514; principal; 2019-08-10 07:15)
DX: O34.211 Maternal care for low transverse scar from previous cesarean delivery (principal); O99.02 Anemia complicating childbirth; D64.9 Anemia, unspecified; Z79.899 Other long term (current) drug therapy; Z3A.39 39 weeks gestation of pregnancy; Z37.0 Single live birth
CPT/HCPCS: 85025; 85027; 86850; 86900; 86901; 99218; 99251; J7120; A4216; G0378; G0463; J2405

== ENCOUNTER → 2019-09-25 11:17 | Outpatient (CLI) | payer BC, SELFPAY ==
[2019-09-25 11:06] VITALS: BMI 33.1
[2019-09-25 11:31] LABS: Absolute Lymphocyte Count 1.88 X10^3/uL (0.83-4.51); Absolute Neutrophil Count 3.4 X10^3/uL (2.0-7.7); Basophil# 0.05 X10^3/uL; Basophil% 0.8 % (0-1); Eosinophil# 0.29 X10^3/uL; Eosinophils% 4.8 % (0-5); Hematocrit 35.6 % (37-47); Lymphocyte # 1.88 X10^3/ul (4.0); Lymphocyte % 31.1 % (19-41); Mean Corp Hgb Conc 30.9 g/dL (32-36); Mean Corpuscular Hgb 24.9 pg (27.0-32.0); Mean Corpuscular Volume 80.7 fL (81-99); Mean Platelet Vol. 9.2 fl (6.2-12.0); Monocyte# 0.43 X10^3/uL; Monocyte% 7.1 % (0-10); NRBC Flagged by Analyzer 0 % (0-5); Neutrophil # 3.38 X10^3/uL (2.7-7.7); Platelet Count 238 K/mm3 (150-450); RBC Distribution Width CV 13.7 % (11.6-14.6); RBC Distribution Width SD 40.2 fl (35.1-43.9); Red Blood Count 4.41 M/mm3 (4.2-5.4)
== END ==
PROVIDERS: PCP Family Medicine; Referring Provider Nurse Practitioner Women's Health; Visit Provider Nurse Practitioner Women's Health
DX: D64.9 Anemia, unspecified (principal)
CPT/HCPCS: 36415; 85025

== ENCOUNTER → 2020-10-03 | Outpatient (CLI) | payer BC, SELFPAY ==
[2020-10-03 08:29] VITALS: BMI 26.6
[2020-10-07 16:26] LABS: HPV Reflexed? NOT INDICATED
== END | disposition home or self-care (01) ==
LOC: LABSPEC 12:33
PROVIDERS: PCP Family Medicine; Referring Provider Obstetrics & Gynecology; Visit Provider Obstetrics & Gynecology
DX: Z12.4 Encounter for screening for malignant neoplasm of cervix (principal)
CPT/HCPCS: 88175; G0145

== ENCOUNTER → 2020-10-24 | Outpatient (CLI) | payer BC, SELFPAY ==
--- NOTE | 2020-10-24 | IMM_PTH ---
PATIENT: CORA CORREA LOC: [facility] U#:[id number] AGE/SX: 30/F ROOM: RE10/24/[address]: Dr. Sandy Carreno MD : 1990 BED: DIS: 10/24/2020 SPEC #: [id number] RECD: 10/28/20 14:26 STATUS: NITESH REMaggie #: [id number] GRETTA: 10/24/20 00:[address]: Sandy Carreno DEPT: IMMUNOHISTOCHEMISTRY RECD BY: Micki Ellis ENTERED: 10/28/20 14:27 SP TYPE: IMMUNO OTHR DR: Dr. Precious Valdez MD Tissues: A - Endocervical B - Uterine cervix, NOS Procedures: p16 (initial) KI-67 (add) PHYSICIAN & INSTITUTION [place] [address] SPECIMEN INFORMATION: Tissue Source: A ? ECC, B ? 2, 3 and 6 o?clock Clinical Info: HGSIL Specimen Number: [id number] A & B CPT code: 27356 x2, 53167 x2 METHODOLOGY: Deparaffinized sections of prefer/formalin-fixed tissue or PAP/DQ stained slides are incubated with monoclonal/polyclonal antibodies/oligonucleotide probes. Localization is made via biotin free immunoperoxidase method. Appropriate controls are performed and reacted as expected. Results on target cell population are indicated in the following table: RESULTS: ANTIBODY / CLONE RESULT Block A P16 (E6H4) positive, focal, patchy Ki-67 (30-9) positive, moderate Block B P16 (E6H4) positive, patchy and focal block-like Ki-67 (30-9) positive, moderate to high These tests were developed and their performance characteristics determined by [facility]. They may not have been cleared or approved by the U.S. Food and Drug Administration. The FDA has determined that such clearance or approval is not necessary. The above immunohistochemical/dualISH markers are ordered and reviewed by the Pathologist. INTERPRETATION: A. Endocervix, curettings (cell block): Consistent with squamous dysplasia (LSIL). B. 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 AM:joshua 10/29/2020 Case has been reviewed in consultation with Dr. Adams who concurs with the above diagnosis. IDC:[email or web address]
--- NOTE | 2020-10-24 13:15 | CER_PTH ---
PATIENT: CORA CORREA LOC: [facility] U#:[id number] AGE/SX: 30/F ROOM: RE10/24/[address]: Dr. Sandy Carreno MD : 1990 BED: DIS: 10/24/2020 SPEC #: [id number] RECD: 10/24/20 14:31 STATUS: NITESH ZHANG #: [id number] GRETTA: 10/24/20 13:[address]: Sandy Carreno DEPT: SURGICAL PATHOLOGY RECD BY: Nano Hoffman ENTERED: 10/25/20 07:55 SP TYPE: CERV OTHR DR: Dr. Precious Valdez MD Tissues: A - Endocervical B - Uterine cervix, NOS Procedures: Surgery Specimen Level IV HEADER OPERATION: Colposcopy PRE-OP DIAGNOSIS: HGSIL TISSUE SUBMITTED: A ? ECC, B ? 2, 3 and 6 o?clock MICROSCOPIC DIAGNOSIS A. Endocervix, curettings (cell block): Detached squamous mucosa fragments consistent with mild dysplasia (HUNTER I). Rare strips of benign superficial endocervix. See comment. B. Cervix at 2, 3 and 6 o?clock, biopsy: Mild to moderate squamous dysplasia, HUNTER I-II (HSIL). See comment. AM:joshua 10/28/2020 COMMENT A & B. Results from immunohistochemistry ([id number]) for surrogate HPV marker (p16) will be reported separately. Case has been reviewed in consultation with Dr. Adams who concurs with the above diagnosis. IDC:SJ MICROSCOPIC DESCRIPTION Slides are reviewed. GROSS DESCRIPTION A - Received in fixative is one container labeled with the patient's name and designated ECC. The specimen consists of a scant amount of soft tissue. The specimen is totally submitted for cell block preparation. B - Received in fixative is one container labeled with the patient's name and designated 2, 3 and 6 o'clock. The specimen consists of multiple fragments of hemorrhagic soft tissue mixed with mcpherson soft tissue that in aggregate measure 1 x 1 x 0.1 cm. The specimen is totally submitted in one cassette. / SHADI:joshua 10/25/20 TC:0 CPT: 68451 x2
== END | disposition home or self-care (01) ==
LOC: LABSPEC 14:38
PROVIDERS: PCP Family Medicine; Visit Provider Obstetrics & Gynecology
DX: R87.613 High grade squamous intraepithelial lesion on cytologic smear of cervix (HGSIL) (principal)
CPT/HCPCS: 88305; 88341; 88342

== ENCOUNTER 2021-05-15 16:10 | Outpatient (CLI) | payer BC, SELFPAY ==
--- NOTE | 2021-05-15 | ECC_PTH ---
PATIENT: CORA CORREA LOC: [facility]#:[id number] AGE/SX: 31/F ROOM: RE05/15/[address]: Dr. Yareli Sullivan DO : 1990 BED: DIS: 05/15/2021 SPEC #: [id number] RECD: 05/15/21 15:55 STATUS: NITESH VICENTE #: [id number] GRETTA: 05/15/21 00:[address]: Yareli Sullivan DEPT: SURGICAL PATHOLOGY RECD BY: Micki Ellis ENTERED: 05/16/21 10:43 SP TYPE: ECC OTHR DR: Dr. Precious Valdez MD Tissues: A - Endocervical B - Uterine cervix, NOS Procedures: Surgery Specimen Level IV HEADER OPERATION: Colposcopy PRE-OP DIAGNOSIS: HGSIL TISSUE SUBMITTED: A - Cervix 5 o?clock, B - Endocervical curettings MICROSCOPIC DIAGNOSIS A. Cervix, 5 o?clock, biopsy: Focal moderate squamous dysplasia with HPV changes (HGSIL, HUNTER II). See comment. B. Endocervical curettings: Rare benign endocervical epithelial cells, negative for dysplasia. SJ:joshua 05/19/2021 COMMENT A. Immunohistochemistry ([id number]) for surrogate HPV marker (p16) supports the above diagnosis. The specimen entirely consists of squamous mucosa. MICROSCOPIC DESCRIPTION Slides are reviewed. GROSS DESCRIPTION A - Received in fixative is one container labeled with the patient's name and designated cervix at 5 o'clock. The specimen consists of one irregular fragment of light mcpherson soft tissue that measures 0.5 x 0.5 x 0.2 cm. The specimen is totally submitted in one cassette. B - Received in fixative is one container labeled with the patient's name and designated endocervical curettings. The specimen consists of minute fragments of mcpherson tissue measuring in aggregate 0.5 x <0.1 x <0.1 cm. The specimen is submitted for cell block preparation. / AM:joshua 05/16/2021 TC:5 CPT: 13545 x2
--- NOTE | 2021-05-15 | IMM_PTH ---
PATIENT: CORA CORREA LOC: [facility] U#:[id number] AGE/SX: 31/F ROOM: RE05/15/[address]: Dr. Yareli Sullivan DO : 1990 BED: DIS: 05/15/2021 SPEC #: [id number] RECD: 05/19/21 13:46 STATUS: NITESH REMaggie #: [id number] GRETTA: 05/15/21 00:[address]: Yareli Sullivan DEPT: IMMUNOHISTOCHEMISTRY RECD BY: Micki Ellis ENTERED: 05/19/21 13:47 SP TYPE: IMMUNO OTHR DR: Dr. Precious Valdez MD Tissues: A - Uterine cervix, NOS Procedures: p16 (initial) KI-67 (add) PHYSICIAN & INSTITUTION [place] [id number] SPECIMEN INFORMATION: Tissue Source: A ? Cervix 5 o?clock Clinical Info: HGSIL Specimen Number: [id number] CPT code: 97758, 85730 METHODOLOGY: Deparaffinized sections of prefer/formalin-fixed tissue or PAP/DQ stained slides are incubated with monoclonal/polyclonal antibodies/oligonucleotide probes. Localization is made via biotin free immunoperoxidase method. Appropriate controls are performed and reacted as expected. Results on target cell population are indicated in the following table: RESULTS: ANTIBODY / CLONE RESULT Block A P16 (E6H4) positive, focal block staining Ki-67 (30-9) positive, moderate These tests were developed and their performance characteristics determined by [facility]. They may not have been cleared or approved by the U.S. Food and Drug Administration. The FDA has determined that such clearance or approval is not necessary. The above immunohistochemical/dualISH markers are ordered and reviewed by the Pathologist. INTERPRETATION: A. Cervix, 5 o?clock, biopsy: Focal moderate squamous dysplasia. SJ:joshua 05/20/2021
[2021-05-23 13:21] LABS: HPV APTIMA, High Risk Positive (Negative)
== END 2021-05-15 23:59 | disposition home or self-care (01) ==
LOC: LABSPEC 16:11
PROVIDERS: PCP Family Medicine; Visit Provider Obstetrics & Gynecology
DX: N87.1 Moderate cervical dysplasia (principal)
CPT/HCPCS: 87624; 88175; 88305; 88341; 88342; G0145

== ENCOUNTER 2021-07-01 10:32 | Day surgery (SDC) | payer BC, SELFPAY ==
[2021-06-30 15:06] LABS: Hematocrit 35.1 % (37-47); Mean Corp Hgb Conc 31.3 g/dL (32-36); Mean Corpuscular Hgb 25.5 pg (27.0-32.0); Mean Corpuscular Volume 81.4 fL (81-99); Platelet Count 244 K/mm3 (150-450); RBC Distribution Width CV 13.9 % (11.6-14.6); RBC Distribution Width SD 41.1 fl (35.1-43.9); Red Blood Count 4.31 M/mm3 (4.2-5.4); White Blood Count 5.1 K/mm3 (4.4-11.0)
[2021-07-01] VITALS (7 sets, daily range): BP systolic 100–118; BP diastolic 62–71; PULSE 60–87; RESP 16–18; TEMP 36.2–37.1; O2SAT 99–100; BMI 27.8
--- NOTE | 2021-07-01 | IMM_PTH ---
PATIENT: CORA CORREA LOC: [facility] [place] U#:[id number] AGE/SX: 31/F ROOM: RE07/01/[address]: Dr. Helga Linda MD : 1990 BED: DIS: 07/01/2021 SPEC #: [id number] RECD: 07/01/21 12:44 STATUS: NITESH REQ #: [id number] GRETTA: 07/01/21 00:[address]: Helga Linda DEPT: IMMUNOHISTOCHEMISTRY RECD BY: Nano Hoffman ENTERED: 07/03/21 12:44 SP TYPE: IMMUNO OTHR DR: Dr. Precious Valdez MD Tissues: UTERINE CERVIX LEEP Procedures: p16 (initial) P16 (add) KI-67 (initial) PHYSICIAN & INSTITUTION [place] [id number] SPECIMEN INFORMATION: Tissue Source: B ? Cervix, LEEP conization Clinical Info: HGSIL Specimen Number: [id number] B3 & B4 CPT code: 05096, 96164 x3 METHODOLOGY: Deparaffinized sections of prefer/formalin-fixed tissue or PAP/DQ stained slides are incubated with monoclonal/polyclonal antibodies/oligonucleotide probes. Localization is made via biotin free immunoperoxidase method. Appropriate controls are performed and reacted as expected. Results on target cell population are indicated in the following table: RESULTS: ANTIBODY / CLONE RESULT Block B3 P16 (E6H4) positive, focal block staining Ki-67 (30-9) positive, high Block B4 P16 (E6H4) positive, focal block staining Ki-67 (30-9) positive, moderate These tests were developed and their performance characteristics determined by [facility]. They may not have been cleared or approved by the U.S. Food and Drug Administration. The FDA has determined that such clearance or approval is not necessary. The above immunohistochemical/dualISH markers are ordered and reviewed by the Pathologist. INTERPRETATION: Eugenio Cervix, LEEP conization: Focal moderate to severe squamous dysplasia. SJ:joshua 07/04/2021
[2021-07-01] MEDS: Lactated Ringers 1,000 ML 15 ML IV ×2 (10:56→14:20)
[2021-07-01 11:00] LABS: Internal QC Validated? YES +Cl - CLEAR BKGD; Pregnancy, Urine Negative Negative
--- NOTE | 2021-07-01 12:15 | CONE_PTH ---
PATIENT: CORA CORREA [place] [facility] [place][id number] AGE/SX: 31/F ROOM: RE07/01/[address]: Dr. Helga Linda MD : 1990 BED: DIS: 07/01/2021 SPEC #: [id number] RECD: 07/01/21 18:56 STATUS: NITESH ZHANG #: [id number] GRETTA: 07/01/21 12:[address]: Helga Linda DEPT: SURGICAL PATHOLOGY RECD BY: Nano Hoffman ENTERED: 07/02/21 09:33 SP TYPE: Leep Cone LIO DR: Dr. Precious Valdez MD Tissues: B - UTERINE CERVIX LEEP A - Endocervical Procedures: Surgery Specimen Level IV Surgery Specimen Level V HEADER OPERATION: LEEP Cone PRE-OP DIAGNOSIS: HGSIL TISSUE SUBMITTED: A - Endocervical Curettings, B - Cervix MICROSCOPIC DIAGNOSIS A. Endocervical curettings: Scant fragments of benign endocervical epithelium and endometrial epithelium and blood. Negative for dysplasia. See comment. B. 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 Dysplastic changes also involve endocervical glands. Chronic cystic cervicitis. See comment. SJ:rg 07/03/2021 COMMENT A. The specimen predominantly consists of blood clot. B. Resection margins of the larger piece are free of dysplastic changes. The smaller piece entirely consists of squamous mucosa and focal moderate squamous dysplasia is noted at the one resection margin, clinical correlation is necessary, whether this represents a true resection margin. Immunohistochemistry ([id number]) for surrogate HPV marker (p16) supports the above diagnosis. Please make reference to previous specimen ([id number]) cervix, 5 o?clock, biopsy with diagnosis of ?focal moderate squamous dysplasia with HPV changes.? Case has been reviewed in consultation with Dr. Luna who concurs with the above diagnosis. IDC:AM MICROSCOPIC DESCRIPTION Slides are reviewed. GROSS DESCRIPTION A - Received in fixative is one container labeled with the patient's name and designated endocervical curettings. The specimen consists of multiple fragments of hemorrhagic soft tissue that in aggregate measure 2 x 1 x 0.1 cm. The specimen is totally submitted in one cassette. B - Received in fixative is one container labeled with the patient's name and designated cervix. The specimen consists of two piece of mcpherson indurated tissue consistent with previously opened LEEP conization measuring 2.5 x 1.5 x 0.7 cm and 1.5 x 1 x 0.5 cm. No mucosal lesion is identified. Nonmucosal surface is inked black. The endocervical margin is inked blue. The entire specimen is submitted in four cassettes as follows: 1-3 ? larger piece, 4 ? smaller piece. / SHADI:joshua 07/02/2021 TC: CPT: 35815, 67090
--- NOTE | 2021-07-01 13:09 | OP.PCM_ITS ---
Problems Associated Problem List Diagnoses (1) HGSIL (high grade squamous intraepithelial lesion) on Pap smear of cervix: Report of Operation Pre-Operative Diagnosis: see problem list Post-Operative Diagnosis: same Surgery/Procedure Performed:: LEEP procedure Description of Surgical Findings:: grossly nl cervix state epidemiologist: None Type of Anesthesia: General and Local Special Medications: monsels paste Specimen's removed: cervix ecc Drains: none Estimated Blood Loss (mL): 50 Fluids Replaced: crystalloid Description of Procedure: Paracervical block was placed with 1% lidocaine and using a loop electrode the outer part of the cervix was removed including the squamocolumnar junction. Endocervical curettings were taken and the base of the cervix was cauterized around the borders and the base to obtain excellent hemostasis. Monsel's paste was placed and patient was awoken and taken recovery in stable condition. Grafts/Implants Used: none Complications none Admit VTE Documentation VTE Present on Admission: No VTE Mechan Device Prophylaxis: SCD's Procedures Urinary/Genital 52xxx-59xxx: 84317 Endocervical curettage
--- NOTE | 2021-07-01 13:09 | PCM.HP.BLA ---
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 Is patient in pain?: No Allergies No Known Allergies Allergy (Verified 06/17/21 10:08) Medications NK 10/24/20 [History Confirmed 06/23/21] Is last menstrual period known: No Post menopausal: No Patient : No : No PFSH Medical History PCOS (polycystic ovarian syndrome) Surgical History H/O ovarian cystectomy History of wisdom tooth extraction, class II edentulism Hx of appendectomy Status post hysteroscopic polypectomy Family History Grandmother Breast cancer Social History adopted: No household members: family housing: house number of children: 1 current occupational status: employed current occupation: [employer] pets and animals: Yes history of recent travel: No sexually active: Yes Smoking Status: Never smoker second hand exposure: No alcohol intake: current alcohol intake frequency: holidays/special occasions only substance use type: does not use seatbelt use: always do you feel safe at home: Yes additional social history: [place]- [employer] HPI LEEP Details: CORA CORREA is a 31 year old who presents for preop appointment planning leep for HUNTER III. Female Reproductive History Menopausal Symptoms: No night sweats Pregancy History 3 Elective abortions Hx Para 2 Spontaneous abortions Hx # Term Pregnancies Ectopic pregnancies Hx # Pregnancies Multiple births # of living children 2 Past Pregnancies Del. Date Name GA/Weeks Outcome Route Bth Weight Infant Gen Labor Lgth Anesthesia Del Locatn Provider FOB 01/16/16 Pattie 41 live - full term 7lbs 8oz Female epidural [facility]ek[facility] 08/10/19 Kristian 39 live - full term 9lbs 4oz Male spinal [facility] AKI Delivery Date: 01/16/16 cord wrapped decels Eveline Guy Delivery Date: 08/10/19 No notes to display ROS Const Constitutional: Denies fatigue, night sweats, weight gain or weight loss ENT ENT: Reports system reviewed and no additional complaints, except as documented Cardio Card: Denies chest pain Resp Resp: Denies cough or dyspnea GI GI: Reports as per HPI; Denies abdominal pain, constipation, nausea or vomiting : Denies nipple discharge, urinary frequency, urinary incontinence, urinary hesitancy, urinary urgency, vaginal discharge, vaginal dryness, vaginal odor or vaginal pruritus Musc Musc: Denies arthralgias, back pain or muscle weakness Skin Skin/Breast: Denies alopecia, change in hair, dry skin, breast mass, breast pain, breast skin changes or nipple discharge Neuro Neuro: Reports system reviewed and no additional complaints, except as documented Psych Psych: Reports system reviewed and no additional complaints, except as documented Endo Endo: Denies cold intolerance, excessive sweating, heat intolerance or polydipsia Angel/Lymph Hematologic/Lymphatic: Denies easy bleeding, Denies easy bruising and Denies lymphadenopathy Exam Const General: cooperative, healthy appearing, comfortable, no acute distress and well developed Orientation: alert HENVA Head: normal to inspection and normocephalic Ears: hearing grossly normal bilaterally and external ears normal Nose: external nose normal and nares normal Face and sinus: normal facial exam Neck Neck: normal visual inspection and no lymphadenopathy Thyroid: thyroid normal Chest Chest palpation & inspection: normal inspection of the chest Resp Effort & Inspection: normal respiratory effort Auscultation: clear to auscultation bilaterally GI Inspection: normal to inspection and non-distended Palpation: soft and no hepatosplenomegaly Musc Other: gross motor intact no deficits, full bilateral strength Skin General: no rashes or lesions noted Neuro General: patient alert, patient awake, moves all extremities and no focal motor deficits Motor: muscle tone normal throughout Extrem General: normal to inspection and no pedal edema Psych Appearance: grossly normal Mental Status: mental status grossly normal Affect: normal affect Speech and Movement: speech and movement normal Coding Level of Care Code No Charge Diagnoses HGSIL (high grade squamous intraepithelial lesion) on Pap smear of cervix R87.613 Assessment and Plan Assessment and Plan (1) HGSIL (high grade squamous intraepithelial lesion) on Pap smear of cervix: Status: Acute Comment: biopsy showed moderate changes of the cells. LEEP procedure verses observation w/repeat colposcopy with pap smear at 6 and 12 months- patient schedule 04/2021 for repeat colpo and pap Plan - Dr. Helga Linda MD: After discussing the patient's diagnosis and treatment plan options, patient wishes to proceed with surgical management. I have discussed with the patient the risks, benefits, and alternatives of the procedure which include but are not limited to risks of anesthesia, bleeding, infection, possible damage to bowel, bladder, or surrounding vasculature which could lead to additional surgery to evaluate any complications. Patient agrees to procedure and wishes to proceed. ACOG/uptodate references given for additional information regarding procedure. UPDATE- I have seen the patient and performed any clinically relevant updates to the history and physical exam. Helga Linda MD
--- NOTE | 2021-07-01 13:09 | EX.PCM.DISCH ---
Discharge Instructions Procedure LEEP Diet Discharge Diet: No restrictions Activity Discharge Activity: Return to Normal Activity and May Not Drive (while taking narcotic pain medications.) May resume sexual activity in: 4 weeks (Nothing in the vagina for 4 weeks.) Dressing / Incision Call your doctor if you observe: Fever of 101 or Higher and Using more than 1 pad per hour Follow Up Care Please Follow Up With: Helga Linda MD When: Call [phone] for follow-up appointment. Test Results: Test results from this visit will be discussed in further detail at your follow-up appointment, if applicable. Discharge Plan Admission Attending Provider: Helga Linda Primary Care Provider: Preicous Valdez Discharge Orders/Prescriptions Prescriptions: No Action Metaburn 2 cap PO/SL DAILY RF: 0 Plexus 1 po pk PO/SL DAILY RF: 0 Referrals / Follow Up: Precious Valdez MD [Primary Care Provider] - Disposition Disposition (needs filled in before D/C Order can be placed): Home, Self Care
[2021-07-01] MEDS: FERRIC SUBSULFATE 8 GM SOLN (14:20)
== END 2021-07-01 15:38 | disposition home or self-care (01) ==
LOC: SDC 10:34 → AC 10:35
PROVIDERS: Anesthesiology; PCP Family Medicine; Referring Provider Obstetrics & Gynecology; Visit Provider Obstetrics & Gynecology
PROC: 0UBC7ZZ Excision of Cervix, Via Natural or Artificial Opening (ICD-10-PCS; CPT 57522; principal; 2021-07-01 12:00)
DX: D06.7 Carcinoma in situ of other parts of cervix (principal); N72 Inflammatory disease of cervix uteri; R87.613 High grade squamous intraepithelial lesion on cytologic smear of cervix (HGSIL); E28.2 Polycystic ovarian syndrome
CPT/HCPCS: 57505; 00940; 36415; 81025; 85027; 86850; 86900; 86901; 87426; 88305; 88307; 88341; 88342; C9803; J7120; J2405

== ENCOUNTER → 2022-10-27 | Outpatient (CLI) | payer BC, SELFPAY ==
[2022-10-27 09:49] LABS: hCG Titer Quant., Serum < 1 mIU/mL (1-3)
[2022-10-27 10:03] LABS: Estradiol 79.6 pg/mL; Follicle Stimulating Hormone 3.7 mIU/mL; Prolactin 12.3 ng/mL; Thyroid Stim Hormone (TSH) 1.46 uIU/mL (0.358-3.74)
== END | disposition home or self-care (01) ==
PROVIDERS: PCP Family Medicine; Referring Provider Nurse Practitioner Women's Health; Visit Provider Nurse Practitioner Women's Health
DX: N91.1 Secondary amenorrhea (principal); Z13.29 Encounter for screening for other suspected endocrine disorder
CPT/HCPCS: 36415; 82670; 83001; 84146; 84443; 84702

== ENCOUNTER → 2023-04-21 | Outpatient (CLI) | payer BC, SELFPAY ==
--- OUTSIDE RECORDS SUMMARY | 2023-04-21 19:43 | XMS RPT_ITS | CCD ---
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 Name Role Phone Arsalan Hogan Unavailable Medications Completed/Discontinued Medications Medication Drug Class(es) Dates Sig (Normalized) Sig (Original) amoxicillin 500 mg oral tablet (2 sources) Penicillin-class Antibacterial Start: 01-19-2017 End: 01-29-2017 AMOXICILLIN 500 MG TABS Take one tab every 12 hours AMOXICILLIN [id number] Arsalan MONTIEL Problems Problem Classification Problem Date Documented Da te Episodic/Chronic Other upper respiratory infections (2 sources) Acute pharyngitis; Translations: [Acute pharyngitis, unspecified] Onset: 01-19-2017 01-19-2017 Episodic Otitis media and related conditions (2 sources) Acute right otitis media; Translations: [Otitis media, unspecified, right ear] Onset: 01-19-2017 01-19-2017 Episodic Results Test Name Value Interpretation Reference Range Facil ity Vital Signs Date Time Vital Sign Value Performing Clinician Faci lity 01-19-2017 17:49-0500 BMI (Body Mass Index) 25.46 kg/m2 Arsalan MONTIEL [facility] Work Phone: 01-19-2017 17:49-0500 Body Temperature 99.9 [degF] Arsalan SPARKS [facility] Work Phone: 01-19-2017 17:49-0500 BP Diastolic 76 mm[Hg] Arsalan MONTIEL [facility] Work Phone: 01-19-2017 17:49-0500 BP Systolic 110 mm[Hg] Arsalan MONTIEL [facility] Work Phone: 01-19-2017 17:49-0500 Height 165.1 cm Arsalan Valencia TIANA [facility] Work Phone: 01-19-2017 17:49-0500 Pulse (Heart Rate) 93 /min Arsalan Valencia TIANA [facility] Work Phone: 01-19-2017 17:49-0500 Respiratory Rate 12 /min Arsalan Valencia TIANA [facility] Work Phone: 01-19-2017 17:49-0500 Weight 69.4 kg Arsalan Valencia TIANA [facility] Work Phone: Procedures Date Procedure Procedure Detail Performing Clinician Start: 01-19-2017 End: 01-19-2017 [employer]adiadoo streptococcus group a Arsalan Bebeto MONTIEL Work Phone: Plan of Treatment Date Care Activity Detail Author Start: 01-19-2017 End: 01-19-2017 Appointment Appointment [facility] Work Phone: [facility] Work Phone: Additional Source Comments FOR RECORDS PERTAINING TO PATIENTS WHO ARE OR HAVE BEEN ENROLLED IN A CHEMICAL DEPENDENCY/SUBSTANCEABUSE PROGRAM, SOME INFORMATION MAY BE OMITTED. This clinical summary was aggregated from multiple sources. Caution should be exercised in using it in the provision of clinical care. This summary normalizes information from multiple sources, and as a consequence, information in this document may materially change the coding, format and clinical context of patient data. In addition, data may be omitted in some cases. CLINICAL DECISIONS SHOULD BE BASED ON THE PRIMARY CLINICAL RECORDS. [facility] [employer] provides no warranty or guarantee of the accuracy or completeness of information in this document.
[2023-04-28 10:09] LABS: HPV APTIMA, High Risk Negative (Negative)
== END | disposition home or self-care (01) ==
LOC: LABSPEC 15:52
PROVIDERS: PCP Family Medicine; Referring Provider Nurse Practitioner Women's Health; Visit Provider Nurse Practitioner Women's Health
DX: Z12.4 Encounter for screening for malignant neoplasm of cervix (principal)
CPT/HCPCS: 87624; 88175; G0145

== ENCOUNTER → 2024-01-10 | Outpatient (CLI) | payer BC, SELFPAY ==
[2024-01-10 17:59] LABS: Absolute Lymphocyte Count 1.75 X10^3/uL (0.83-4.51); Absolute Neutrophil Count 4.5 X10^3/uL (2.0-7.7); Basophil# 0.04 X10^3/uL; Basophil% 0.6 % (0-1); Eosinophil# 0.18 X10^3/uL; Eosinophils% 2.6 % (0-5); Hematocrit 38.4 % (37-47); Hemoglobin 11.8 g/dL (12.0-15.0); Lymphocyte # 1.75 X10^3/ul (0.83-4.51); Mean Corp Hgb Conc 30.7 g/dL (32-36); Mean Corpuscular Volume 81.4 fL (81-99); Monocyte% 7.2 % (0-10); NRBC Flagged by Analyzer 0 % (0-5); Neutrophil # 4.51 X10^3/uL (2.7-7.7); Neutrophil % 64.5 % (47-70); Platelet Count 261 K/mm3 (150-450); RBC Distribution Width CV 18.1 % (11.6-14.6); RBC Distribution Width SD 53.1 fl (35.1-43.9); RET-HE 31.1 pg (30-35); Red Blood Count 4.72 M/mm3 (4.2-5.4); Reticulocyte Count 1.93 % (0.5-1.5)
== END | disposition home or self-care (01) ==
PROVIDERS: PCP Family Medicine; Visit Provider Family Medicine
DX: D64.9 Anemia, unspecified (principal)
CPT/HCPCS: 36415; 85025; 85045

== ENCOUNTER → 2024-07-03 | Outpatient (CLI) | payer BC, SELFPAY ==
[2024-07-06 07:07] LABS: HPV APTIMA, High Risk Negative (Negative)
== END | disposition home or self-care (01) ==
LOC: LABSPEC 16:10
PROVIDERS: PCP Family Medicine; Referring Provider Nurse Practitioner Women's Health; Visit Provider Nurse Practitioner Women's Health
DX: Z12.4 Encounter for screening for malignant neoplasm of cervix (principal); R30.0 Dysuria
CPT/HCPCS: 87077; 87086; 87088; 87186; 87624; 88175; G0145